=== PATIENT | female | born 1930 | race Caucasian/White ===

== ENCOUNTER 2016-05-15 10:47 | Inpatient (IN) | payer MEDICARE ==
[~2016-05-15] VITALS: Ht 171.4 cm; Wt 44.1 kg
[2016-05-15] VITALS (11 sets, daily range): BP systolic 79–145; BP diastolic 44–73; PULSE 93–143; RESP 16–25; TEMP 98.1–99.6; O2SAT 96–100
[~2016-05-15 10:47] MED LIST: AMLO10 PO; FEXO180 PO; FLON0.053; FLUTI44I INH; HYDR-3580 OR; LEVO50TA51 PO; LOSA25TA31 PO; TRAM50 PO
[2016-05-15] MEDS ORDERED: CALC1TAB12 PO (11:28)
[2016-05-15] MEDS ORDERED: LOSA25TA PO (11:28)
[2016-05-15] MEDS ORDERED: FLUTI110I INH (11:28)
[2016-05-15] MEDS ORDERED: FEXO180T PO (11:28)
[2016-05-15] MEDS ORDERED: FLUT1SPR5 EACH NARE (11:28)
[2016-05-15] MEDS ORDERED: MULT1TAB84 PO (11:28)
[2016-05-15] MEDS ORDERED: TYLETAB34 PO (11:28)
[2016-05-15] MEDS ORDERED: LEVO50TA4 PO (11:28)
[2016-05-15] MEDS ORDERED: AMLO5TAB2 PO (11:28)
--- NOTE | 2016-05-15 11:38 | PD ---
HPI Chief Complaint: Abdominal Pain Time Seen by Provider: 11:25 Travel History International Travel<30 days: No Contact w/Intl Traveler<30days: No Traveled to known affect area: No History of Present Illness HPI This patient complains of pain in her right upper quadrant. Pain is worse when she moves. Her appetite has been decreased. She had nausea vomiting diarrhea for couple of days but it basically stopped this morning. Resting in the bed she has minimal abdominal pain at this time. Symptoms severity has been moderate. No alleviating factors. No fever. Duration 3 days. PFSH Past Medical History Anemia: Yes Arthritis: Yes Asthma: Yes Blood Disorders: No Cancer: No High Cholesterol: Yes Chemotherapy: No Diminished Hearing: No Diverticulitis: Yes Gastrointestinal Disorders: Yes GERD: Yes Genitourinary: No Hypertension: Yes Immune Disorder: No Neurologic: Yes (Tremors) Psychiatric: No Reproductive: No Immunizations Current: No Radiation Therapy: No Thyroid Disease: Yes Tetanus Vaccination: Unknown Influenza Vaccination: Yes ?: Not Menopausal: Yes Dilation and Curettage (D&C): Yes Past Surgical History Gynecologic Surgery: Yes (D AND C ) Other Surgery: No Social History Alcohol Use: Yes (Rarely) Tobacco Use: No Substance Use: No Allergies-Medications (Allergen,Severity, Reaction): Coded Allergies: Primidone (Verified Adverse Reaction, Severe, Tremors, 05/15/16) Reported Meds & Prescriptions Reported Meds & Active Scripts Active Reported Tylenol-Codeine #3 (Acetaminophen-Codeine) 300-30 mg Tab 1 Tab PO Q4H PRN Calcium 500 +D (Calcium Carbonate-Cholecalciferol) 500-400 Mg-Unit Tab 1 Tab PO DAILY Multivitamin Adults (Multiple Vitamins W/ Minerals) 1 Tab 1 Tab PO DAILY Flonase Nasal [place] (Fluticasone Nasal [place]) 50 Mcg/Act [place] 50 Mcg EACH NARE BID Flovent Hfa 12 GM Inh (Fluticasone Propionate) 110 Mcg/Act Inh 2 Puff INH BID Fexofenadine (Fexofenadine HCl) 180 Mg Tab 180 Mg PO DAILY PRN Losartan (Losartan Potassium) 25 Mg Tab 25 Mg PO BID Levothyroxine (Levothyroxine Sodium) 50 Mcg Tab 50 Mcg PO DAILY Amlodipine (Amlodipine Besylate) 5 Mg Tab 5 Mg PO BID Review of Systems General / Constitutional: No: Fever Eyes: No: Visual changes HENT: No: Headaches Cardiovascular: No: Chest Pain or Discomfort Respiratory: No: Shortness of Breath Gastrointestinal: Positive: Nausea, Vomiting, Diarrhea, Abdominal Pain Genitourinary: No: Dysuria Musculoskeletal: No: Pain Skin: No Rash Neurologic: No: Weakness Psychiatric: No: Depression Endocrine: No: Polydipsia Hematologic/Lymphatic: No: Easy Bruising Physical Exam Narrative GENERAL: Thin elderly well-developed patient in no apparent distress. SKIN: Warm and dry. HEAD: Atraumatic. Normocephalic. EYES: Pupils equal and round. No scleral icterus. No injection or drainage. ENT: No nasal bleeding or discharge. Mucous membranes pink and moist. NECK: Trachea midline. No JVD. CARDIOVASCULAR: Regular rate and rhythm. No murmur appreciated. RESPIRATORY: No accessory muscle use. Clear to auscultation. Breath sounds equal bilaterally. GASTROINTESTINAL: Abdomen soft, right upper quadrant is tender but no rebound or guarding, nondistended. Hepatic and splenic margins not palpable. Has a readily reducible right inguinal hernia but this area is not tender. MUSCULOSKELETAL: No obvious deformities. No clubbing. No cyanosis. No edema. NEUROLOGICAL: Awake and alert. No obvious cranial nerve deficits. Motor grossly within normal limits. Normal speech. PSYCHIATRIC: Appropriate mood and affect; insight and judgment normal. Data Data Last Documented VS Vital Signs Date Time Temp Pulse Resp B/P Pulse Ox O2 Delivery O2 Flow Rate FiO2 05/15/16 12:50 102 18 145/73 99 Room Air 05/15/16 11:15 99.6 Orders Complete Blood Count With Diff (05/15/16 11:33) Basic Metabolic Panel (Bmp) (05/15/16 11:33) Iv Access Insert/Monitor (05/15/16 11:33) Ondansetron Inj (Zofran Inj) (05/15/16 11:45) Sodium Chloride 0.9% Flush (Ns Flush) (05/15/16 11:45) Sodium Chlorid 0.9% 500 Ml Inj (Ns 500 M (05/15/16 11:45) Ct Abd/Pel W Iv Contrast(Rout) (05/15/16 ) Urinalysis - C+S If Indicated (05/15/16 12:34) Cath For Specimen (05/15/16 12:34) Iohexol 350 Inj (Omnipaque 350 Inj) (05/15/16 13:09) Hepatic Functional Panel (05/15/16 11:20) Lipase (05/15/16 11:20) Labs Laboratory Tests Test 05/15/16 05/15/16 11:20 12:50 White Blood Count 21.4 TH/MM3 Red Blood Count 3.59 MIL/MM3 Hemoglobin 10.1 GM/DL Hematocrit 29.9 % Mean Corpuscular Volume 83.4 FL Mean Corpuscular Hemoglobin 28.2 PG Mean Corpuscular Hemoglobin 33.8 % Concent Red Cell Distribution Width 12.8 % Platelet Count 309 TH/MM3 Mean Platelet Volume 9.3 FL Neutrophils (%) (Auto) % Lymphocytes (%) (Auto) % Monocytes (%) (Auto) % Eosinophils (%) (Auto) % Basophils (%) (Auto) % Neutrophils # (Auto) TH/MM3 Lymphocytes # (Auto) TH/MM3 Monocytes # (Auto) TH/MM3 Eosinophils # (Auto) TH/MM3 Basophils # (Auto) TH/MM3 CBC Comment AUTO DIFF Differential Total Cells 100 Counted Neutrophils % (Manual) 88 % Band Neutrophils % 3 % Lymphocytes % 6 % Monocytes % 3 % Neutrophils # (Manual) 19.5 TH/MM3 Differential Comment FINAL DIFF MANUAL Platelet Estimate NORMAL Platelet Morphology Comment NORMAL Sodium Level 135 MEQ/L Potassium Level 3.6 MEQ/L Chloride Level 98 MEQ/L Carbon Dioxide Level 22.5 MEQ/L Anion Gap 15 MEQ/L Blood Urea Nitrogen 33 MG/DL Creatinine 1.00 MG/DL Estimat Glomerular Filtration 52 ML/MIN Rate Random Glucose 111 MG/DL Calcium Level 9.1 MG/DL Total Bilirubin 1.1 MG/DL Direct Bilirubin 0.4 MG/DL Indirect Bilirubin 0.7 MG/DL Aspartate Amino Transf 36 U/L (AST/SGOT) Alanine Aminotransferase 22 U/L (ALT/SGPT) Alkaline Phosphatase 84 U/L Total Protein 7.9 GM/DL Albumin 2.9 GM/DL Lipase 127 U/L Urine Collection Type CATH Urine Color YELLOW Urine Turbidity CLEAR Urine pH 6.0 Urine Specific [place] 1.019 Urine Protein 100 mg/dL Urine Glucose (UA) NEG mg/dL Urine Ketones TRACE mg/dL Urine Occult Blood TRACE Urine Nitrite NEG Urine Bilirubin NEG Urine Leukocyte Esterase NEG Urine WBC 0-2 /hpf Urine Transitional Epithelial 0-5 /hpf Cells Urine Hyaline Casts 20-24 /lpf Microscopic Urinalysis Comment CATH-CULT NOT IND Urine Collection Time 12:50 MDM Medical Decision Making Medical Screen Exam Complete: Yes Emergency Medical Condition: Yes Medical Record Reviewed: Yes Differential Diagnosis Inguinal hernia, incarcerated hernia, gastroenteritis, dehydration Narrative Course I have reviewed the patient's electronic medical record. IV placed I gave her IV Zofran and 500 cc normal saline IV CBC shows significant leukocytosis of 22,000 Metabolic profile is normal LFTs are normal Lipase is normal Patient has a tender right upper quadrant and CT scan shows a distended and thickened gallbladder. I gave her dose of IV Unasyn Patient has acute cholecystitis I reviewed with general surgeon Dr. Valdes who recommends hospitalist admission and he will be databases software consultant Diagnosis Primary Impression: Acute cholecystitis Admitting Information Admitting Physician Requests: Admit Santhosh Stone MD May 15, 2016 11:38
[2016-05-15] MEDS ORDERED: SODIUM CHLORIDE 0.9% FLUSH 10 ML FLUSH IVF PRN (11:45)
[2016-05-15] MEDS ORDERED: ONDANSETRON HCL 4 MG/2 ML VIAL IVP ONE (11:45)
[2016-05-15] MEDS ORDERED: SODIUM CHLORID 0.9% 500 ML INJ 500 ML IV SCH (11:45)
[2016-05-15 11:46] LABS: HEMATOCRIT 29.9 % (35.0-46.0); MEAN CELL VOLUME 83.4 FL (80.0-100.0); MEAN CORPUSCULAR HEMOGLOBIN 28.2 PG (27.0-34.0); MEAN CORPUSCULAR HGB CONC 33.8 % (32.0-36.0); PLATELET COUNT 309 TH/MM3 (150-450); RED BLOOD COUNT 3.59 MIL/MM3 (4.00-5.30); RED CELL DISTRIBUTION WIDTH 12.8 % (11.6-17.2); WHITE BLOOD COUNT 21.4 TH/MM3 (4.0-11.0)
[2016-05-15 11:47] LABS: HEMO FLAGS AUTO DIFF
[2016-05-15 11:56] LABS: POTASSIUM 3.6 MEQ/L (3.5-5.1)
[2016-05-15 11:59] LABS: BICARBONATE 22.5 MEQ/L (21.0-32.0)
[2016-05-15 12:11] LABS: BANDS 3 % (0-6); NEUTROPHIL # MANUAL DIFF 19.5 TH/MM3 (1.8-7.7); PLATELET ESTIMATE SMEAR NORMAL (NORMAL); PLATELET MORPHOLOGY NORMAL (NORMAL); POLYS (SEG NEUTROPHILS) 88 % (16-70); SCAN/DIFF FINAL DIFF MANUAL; WBC DIFF SAMPLE 100
[2016-05-15 12:55] LABS: BLOOD, URINE TRACE (NEG); GLUCOSE,URINE NEG (NEG); KETONE, URINE TRACE mg/dL (NEG); NITRITE,URINE NEG (NEG)
[2016-05-15 13:02] LABS: METHOD OF COLLECTION CATH; URINE COLOR YELLOW (YELLW/STRAW)
[2016-05-15 13:03] LABS: COMMENT (UR) CATH-CULT NOT IND; CULTURE IF INDICATED CATH CULTURE NOT IND; TRANSITIONAL EPI CELLS, URINE 0-5 /hpf; WBC, URINE 0-2 /hpf (0-5)
[2016-05-15] MEDS ORDERED: IOHEXOL 350 MG/ML 10 ML VIAL (for RAD DIAG) IV ONE (13:09)
--- NOTE | 2016-05-15 13:24 | RADHPO ---
EXAM DATE/TIME: 05/15/2016 12:55 [facility] COMPARISON: No previous studies available for comparison. INDICATIONS : Right lower quadrant pain. Nausea, vomiting and diarrhea. IV CONTRAST: 70 cc Omnipaque 350 (iohexol) IV ORAL CONTRAST: No oral contrast ingested. RADIATION DOSE: 4.53 CTDIvol (mGy) MEDICAL HISTORY : Diverticulitis. Gastroesophageal reflux disease. Hypertension.Asthma. SURGICAL HISTORY : None. ENCOUNTER: Initial ACUITY: 3 days PAIN SCALE: 6/10 LOCATION: Right lower quadrant TECHNIQUE: Volumetric scanning of the abdomen and pelvis was performed. Using automated exposure control and ad justment of the mA and/or kV according to patient size, radiation dose was kept as low as reasonably achievable to obtain optimal diagnostic quality images. FINDINGS: LOWER LUNGS: Bibasilar atelectatic changes/scarring, right and left. Atherosclerotic calcification of the coronary arteries LIVER: The abnormal with intra-and extrahepatic biliary ductal dilatation. The CBD measures almost 9 mm at t he pancreatic head. There is marked distention of the gallbladder lumen with diffuse gallbladder wall thickening. The second portion of the duodenum in the region of the ampulla is distended measuring 4 .5 cm.. SPLEEN: Normal size without lesion. PANCREAS: Within normal limits. KIDNEYS: Left kidney shows some cortical thinning and lobulation suggesting scarring. Followup is calcificatio n of the renal vasculature in the hilum on the right. Benign-appearing cortical cyst posterolaterally in the midpole the right kidney. In ADRENAL GLANDS: Within normal limits. VASCULAR: There is no aortic aneurysm. BOWEL/MESENTERY: The stomach, small bowel, and colon demonstrate no acute abnormality. There is no free intraperitone al air or fluid. ABDOMINAL WALL: Within normal limits. RETROPERITONEUM: There is no lymphadenopathy. BLADDER: No wall thickening or mass. REPRODUCTIVE: Scattered uterine parenchymal calcifications suggesting degenerating fibroids. INGUINAL: There is no lymphadenopathy or hernia. MUSCULOSKELETAL: There appears to be a high grade one anterolisthesis of L4 on 5 with possible bilateral pars fracture s at L4. CONCLUSION: 1. Markedly abnormal biliary tree with intra-and extrahepatic biliary duct dilatation, hydropic gallb ladder and marked gallbladder wall thickening. 2. Etiology for biliary obstruction is uncertain. However, there is distention of the second portion of the duodenum in the region of the ampulla. 3. Bibasilar atelectatic changes/scarring, right greater than left. 4. Cortical scarring and thinning of the left kidney. This may be the result of some vascular comprom ise. Degenerated uterine fibroids. Luis Rowe MD on May 15, 2016 at 13:10 Board Certified Radiologist. This report was verified electronically.
[2016-05-15 14:07] LABS: INDIRECT BILIRUBIN 0.7 MG/DL (0.0-0.8); TOTAL BILIRUBIN ADULT 1.1 MG/DL (0.2-1.0)
[2016-05-15] MEDS ORDERED: SODIUM CHLORIDE 0.9% FLUSH 10 ML FLUSH IV FLUSH PRN ×2 (14:45→16:30)
[2016-05-15] MEDS ORDERED: PIPERACIL-TAZO 3.375 GM PREMIX 50 ML IV SCH (14:45)
[2016-05-15] MEDS ORDERED: ACETAMINOPHEN 325 MG TAB PO PRN (14:45)
[2016-05-15] MEDS ORDERED: ONDANSETRON HCL 4 MG/2 ML VIAL IV PRN (14:45)
[2016-05-15] MEDS ORDERED: AMPICILLIN-SULBACTAM INJ 3 GM in SODIUM CHLORIDE 0.9% INJ 100 ML IV ONE (14:45)
[2016-05-15] MEDS: SODIUM CHLOR 0.9% 1000 ML INJ 1,000 ML IV SCH ×2 (15:31→22:31)
[2016-05-15] MEDS ORDERED: DILTIAZEM HCL 25 MG/5 ML VIAL IV ONE (16:15)
[2016-05-15] MEDS ORDERED: SODIUM CHLOR 0.9% 1000 ML INJ 1,000 ML IV ONE ×3 (16:15→22:30)
--- NOTE | 2016-05-15 16:27 | HHI.HP ---
HPI Service CP Hospitalists Primary Care Physician Lam Yang MD Admission Diagnosis acute cholecystitis Chief Complaint: acute abdominal pain with new onset atril fib with rvr hypotension Travel History International Travel<30 Days: No Contact w/Intl Traveler <30 Da: No Traveled to Known Affected Are: No History of Present Illness 86 y/o white female presents to er with abdominal pain with nausea and vomit work in er included CT abd which showed significant dilation bile ducts with large dilated gallbladder ,patient was to be admitted to medicine and in er developed rapid atrial fib with ventricular response of 150 and started on cardiazem bolus and drip and also developed hypotension and is receiving bolus IV fluid and will be admitted to intensive care. I will consult dairy cattle farm manager surgery has already been aware and will consult interventional radiology who also are aware of patient. Review of Systems Gastrointestinal: COMPLAINS OF: Abdominal pain, Nausea Past Family Social History Past Medical History anemia,djd,hyperlipidemia diverticular disease,GERD,hypothyroid Past Surgical History dand c Reported Medications flonase,losartan amlodipine levothyroxine Allergies: Coded Allergies: Primidone (Verified Adverse Reaction, Severe, Tremors, 05/15/16) Social History NS,ND Physical Exam Vital Signs Vital Signs Date Time Temp Pulse Resp B/P Pulse Ox O2 Delivery O2 Flow Rate FiO2 05/15/16 15:55 143 16 79/52 97 Room Air 05/15/16 15:30 135 16 111/58 97 Room Air 05/15/16 14:05 95 16 123/44 97 Room Air 05/15/16 12:50 102 18 145/73 99 Room Air 05/15/16 11:15 99.6 93 18 103/56 100 Physical Exam GENERAL: This is a well-nourished, well-developed patient, in no apparent distress. SKIN: No rashes, ecchymoses or lesions. Cool and dry. HEAD: Atraumatic. Normocephalic. No temporal or scalp tenderness. EYES: Pupils equal round and reactive. Extraocular motions intact. No scleral icterus. No injection or drainage. ENT: Nose without bleeding, purulent drainage or septal hematoma. Throat without erythema, tonsillar hypertrophy or exudate. Uvula midline. Airway patent. NECK: Trachea midline. No JVD or lymphadenopathy. Supple, nontender, no meningeal signs. CARDIOVASCULAR: Regular rate and rhythm without murmurs, gallops, or rubs. RESPIRATORY: Clear to auscultation. Breath sounds equal bilaterally. No wheezes , rales, or rhonchi. GASTROINTESTINAL: Abdomen soft, -tender,rt upper quadrant nondistended. No hepato-splenomegaly, or palpable masses. No guarding. MUSCULOSKELETAL: Extremities without clubbing, cyanosis, or edema. No joint tenderness, effusion, or edema noted. No calf tenderness. Negative Homans sign bilaterally. NEUROLOGICAL: Awake and alert. Cranial nerves II through XII intact. Motor and sensory grossly within normal limits. Five out of 5 muscle strength in all muscle groups. Normal speech. Laboratory Laboratory Tests Test 05/15/16 05/15/16 11:20 12:50 White Blood Count 21.4 Red Blood Count 3.59 Hemoglobin 10.1 Hematocrit 29.9 Mean Corpuscular Volume 83.4 Mean Corpuscular Hemoglobin 28.2 Mean Corpuscular Hemoglobin 33.8 Concent Red Cell Distribution Width 12.8 Platelet Count 309 Mean Platelet Volume 9.3 Neutrophils (%) (Auto) Lymphocytes (%) (Auto) Monocytes (%) (Auto) Eosinophils (%) (Auto) Basophils (%) (Auto) Neutrophils # (Auto) Lymphocytes # (Auto) Monocytes # (Auto) Eosinophils # (Auto) Basophils # (Auto) CBC Comment AUTO DIFF Differential Total Cells 100 Counted Neutrophils % (Manual) 88 Band Neutrophils % 3 Lymphocytes % 6 Monocytes % 3 Neutrophils # (Manual) 19.5 Differential Comment FINAL DIFF MANUAL Platelet Estimate NORMAL Platelet Morphology Comment NORMAL Sodium Level 135 Potassium Level 3.6 Chloride Level 98 Carbon Dioxide Level 22.5 Anion Gap 15 Blood Urea Nitrogen 33 Creatinine 1.00 Estimat Glomerular Filtration 52 Rate Random Glucose 111 Calcium Level 9.1 Total Bilirubin 1.1 Direct Bilirubin 0.4 Indirect Bilirubin 0.7 Aspartate Amino Transf 36 (AST/SGOT) Alanine Aminotransferase 22 (ALT/SGPT) Alkaline Phosphatase 84 Total Protein 7.9 Albumin 2.9 Lipase 127 Urine Collection Type CATH Urine Color YELLOW Urine Turbidity CLEAR Urine pH 6.0 Urine Specific [place] 1.019 Urine Protein 100 Urine Glucose (UA) NEG Urine Ketones TRACE Urine Occult Blood TRACE Urine Nitrite NEG Urine Bilirubin NEG Urine Leukocyte Esterase NEG Urine WBC 0-2 Urine Transitional Epithelial 0-5 Cells Urine Hyaline Casts 20-24 Microscopic Urinalysis Comment CATH-CULT NOT IND Urine Collection Time 12:50 Result Diagram: 05/15/16 1120 05/15/16 1120 Imaging Last 24 hours Impressions Abdomen/Pelvis CT 05/15/16 0000 Signed Impressions: Service Date/Time: Sunday, May 15, 2016 12:55 - CONCLUSION: 1. Markedly abnormal biliary tree with intra-and extrahepatic biliary duct dilatation, hydropic gallbladder and marked gallbladder wall thickening. 2. Etiology for biliary obstruction is uncertain. However, there is distention of the second portion of the duodenum in the region of the ampulla. 3. Bibasilar atelectatic changes/scarring, right greater than left. 4. Cortical scarring and thinning of the left kidney. This may be the result of some vascular compromise. Degenerated uterine fibroids. Luis Rowe MD Course heart rate-rapid atrial fib improved with bolus fluid and bolus cardiazem Assessment and Plan Problem List: (1) Acute cholecystitis Status: Acute Plan: [place] [id number] and was started on Zosyn and given IV fluid and have consulted GI general surgery and interventional radiology (2) Hypotension Status: Acute Plan: responding to IV fluid (3) Rapid atrial fibrillation Status: Acute Plan: given cardiazem bolus starting to respond have discussed with dairy cattle farm manager will transfer to [facility] [place] and consult them. Assessment and Plan further plan as case develops Code Status full Discussed Condition With patient Physician Certification 2 Midnight Certification Type: Admission for Inpatient Services Order for Inpatient Services The services are ordered in accordance with Medicare regulations or non- Medicare payer requirements, as applicable. In the case of services not specified as inpatient-only, they are appropriately provided as inpatient services in accordance with the 2-midnight benchmark. Estimated LOS (days): 3 3 days is the estimated time the patient will need to remain in the hospital, assuming treatment plan goals are met and no additional complications. Post-Hospital Plan: Not yet determined Ramirez Lucio MD May 15, 2016 16:27
[2016-05-15] MEDS ORDERED: NALOXONE HCL 0.4 MG/ML AMP IV PRN (16:30)
[2016-05-15] MEDS ORDERED: fentaNYL CITRATE 250 MCG/5 ML AMP ONE (17:21)
[2016-05-15] MEDS ORDERED: LEVOFLOXACIN 500 MG PREMIX INJ 100 ML IV ONE (17:21)
[2016-05-15] MEDS ORDERED: MIDAZOLAM HCL 5 MG/5 ML VIAL ONE (17:36)
--- NOTE | 2016-05-15 18:12 | HHI.GIFU ---
GI Follow-up Note Consult Follow-up came to see patient -in IR having cholecystostomy tube placement now It was a pleasure seeing Priti Magana Thank you for this consult. Entered by: Lalita Beverly MD May 15, 2016 18:12
--- NOTE | 2016-05-15 18:56 | RADRPT ---
EXAM DATE/TIME: 05/15/2016 17:52 [facility] COMPARISON: No previous studies available for comparison. INDICATIONS : Patient is in need of placement of a cholecystostomy tube due to acute cholecystitis. MEDICAL HISTORY : History of anemia, hypercholesteremia, hypothyroidism, diverticular disease. SURGICAL HISTORY : History of D and C. ENCOUNTER: Initial ACUITY: 1 day PAIN SCORE: 3/10 LOCATION: abdomen FLUORO TIME: 1.3 minutes IMAGE SERIES: 0 SEDATION TIME: 30 minutes MEDICATION(S): 1.) 1 mg midazolam (Versed) IV 2.) 75 mcg fentanyl (Sublimaze) IV 3.) 500 mg levofloxacin (Levaquin) IV DEVICE(S): 1.) 7 [place] 20cm Locking All purpose drain Skater PROCEDURE : 1. Ultrasound guided puncture of the gallbladder. 2. Percutaneous cholangiogram. 3. Percutaneous cholecystostomy tube placement. 4. Conscious sedation with continuous EKG and oximetry monitoring. The risks, benefits and alternatives to the procedure were explained and verbal and written consent w as obtained. The site was prepped in sterile fashion. Full sterile technique was used, including ca p, mask, sterile gloves and gown and a large sterile sheet. Hand hygiene and 2% chlorhexidine and/or betadine/alcohol prep was utilized per protocol for cutaneous antisepsis. The skin and subcutaneous tissues were infiltrated with local anesthetic solution. With ultrasound and fluoroscopic guidance the gallbladder was punctured with a micropuncture set and a 4 [place] dilator was placed. There was spontaneous return of slightly blood-tinged bile A 0.035 shayy dewire was placed within the gallbladder lumen and dilatation was performed to accept the prescribed catheter. Conscious sedation was performed with the prescribed dosages and duration as above in the presence of an independent trained radiology nurse to assist in the monitoring of the patient. EKG and oximetry remained stable throughout the procedure. The patient tolerated the procedure well and there were n o complications. The patient was sent to post anesthesia recovery in stable condition. CONCLUSION: Uncomplicated percutaneous cholecystostomy as above. Nagi Robbins MD on May 15, 2016 at 18:53 Board Certified Radiologist. This report was verified electronically.
--- NOTE | 2016-05-15 19:01 | PD.RAD ---
Post Procedure Progress Note Pre Procedure Diagnosis: (1) Acute cholecystitis Post Procedure Diagnosis: (1) Acute cholecystitis Procedure Date: May 15, 2016 Supervising Radiologist: Nagi Robbins Proceduralist/Assist: RT Aleksandra(R)() Anesthesia: Local, Conscious Sedation Plan of Activity Patient to Unit: ROPU Patient Condition: Fair See PACS Report for procedural detail/treatment Drainage Procedure Procedure 1 Imaging Guidance: Fluoroscopy, Ultrasound Side: Right Procedure Type: Cholecystostomy Procedure: Placement Latvian: 7 Drainage: [place] drainage Fluid Description: Bloody, Bilious Nagi Robbins MD May 15, 2016 19:01
[2016-05-15] MEDS ORDERED: DILTIAZEM INJ 125 MG in SODIUM CHLORIDE 0.9% INJ 100 ML IV SCH (20:00)
[2016-05-15] MEDS: amLODIPine BESYLATE 5 MG TAB PO SCH (20:10)
[2016-05-15] MEDS: PIPERACIL-TAZO 3.375 GM PREMIX 50 ML IV SCH (20:11)
[2016-05-15] MEDS ORDERED: SODIUM CHLORIDE 0.9% FLUSH 10 ML FLUSH IV FLUSH SCH ×2 (21:00)
--- NOTE | 2016-05-15 21:15 | PD.CONS ---
HPI Service Critical Care Medicine Consult Requested By Primary Care Physician Lam Yang MD History of Present Illness 86-year-old very pleasant white female presents with abdominal pain, nausea and vomiting. Her workup in the emergency department included CT a abdomen which showed significant dilation of the bile ducts with large dilated gallbladder. The patient was admitted to medicine however while in the emergency department she developed rapid atrial f ablation ib with ventricular response of 150 and was started on Cardizem bolus and drip. She developed hypotension and is receiving bolus IV fluid and now is admitted to intensive care unit. Surgery has already been aware. Review of Systems Constitutional: DENIES: Diaphoretic episodes, Fatigue, Fever, Weight gain, Weight loss, Chills, Dizziness, Change in appetite, Night Sweats Endocrine: DENIES: Abnorml menstrual pattern, Heat/cold intolerance, Polydipsia , Polyuria, Polyphagia Eyes: DENIES: Blurred vision, Diplopia, Eye inflammation, Eye pain, Vision loss , Photosensitivity, Double Vision Ears, nose, mouth, throat: DENIES: Tinnitus, Hearing loss, Vertigo, Nasal discharge, Oral lesions, Throat pain, Hoarseness, Ear Pain, Running Nose, Epistaxis, Sinus Pain, Toothache, Odynophagia Respiratory: DENIES: Apneas, Cough, Snoring, Wheezing, Hemoptysis, Sputum production, Shortness of breath Cardiovascular: DENIES: Chest pain, Palpitations, Syncope, Dyspnea on Exertion , PND, Lower Extremity Edema, Orthopnea, Claudication Gastrointestinal: COMPLAINS OF: Abdominal pain, Nausea, Vomiting, DENIES: Black stools, Bloody stools, Constipation, Diarrhea, Difficulty Swallowing, Anorexia Genitourinary: DENIES: Abnormal vaginal bleeding, Dysmenorrhea, Dyspareunia, Sexual dysfunction, Urinary frequency, Urinary incontinence, Urgency, Hematuria , Dysuria, Nocturia, Vaginal discharge Musculoskeletal: DENIES: Joint pain, Muscle aches, Stiffness, Joint Swelling, Back pain, Neck pain Integumentary: DENIES: Abnormal pigmentation, Pruritus, Rash, Nail changes, Breast masses, Breast skin changes, Nipple discharge Hematologic/lymphatic: DENIES: Bruising, Lymphadenopathy Immunologic/allergic: DENIES: Eczema, Urticaria Neurologic: DENIES: Abnormal gait, Headache, Localized weakness, Paresthesias, Seizures, Speech Problems, Tremor, Poor Balance Psychiatric: DENIES: Anxiety, Confusion, Mood changes, Depression, Hallucinations, Agitation, Suicidal Ideation, Homicidal Ideation, Delusions Past Family Social History Allergies: Coded Allergies: Primidone (Verified Adverse Reaction, Severe, Tremors, 05/15/16) Past Medical History Anemia Degenerative joint disease Hyperlipidemia Diverticulosis GERD Hypothyroid Past Surgical History D and C Reported Medications Reported Meds & Active Scripts Active Reported Tylenol-Codeine #3 (Acetaminophen-Codeine) 300-30 mg Tab 1 Tab PO Q4H PRN Calcium 500 +D (Calcium Carbonate-Cholecalciferol) 500-400 Mg-Unit Tab 1 Tab PO DAILY Multivitamin Adults (Multiple Vitamins W/ Minerals) 1 Tab 1 Tab PO DAILY Flonase Nasal [place] (Fluticasone Nasal [place]) 50 Mcg/Act [place] 50 Mcg EACH NARE BID Flovent Hfa 12 GM Inh (Fluticasone Propionate) 110 Mcg/Act Inh 2 Puff INH BID Fexofenadine (Fexofenadine HCl) 180 Mg Tab 180 Mg PO DAILY PRN Losartan (Losartan Potassium) 25 Mg Tab 25 Mg PO BID Levothyroxine (Levothyroxine Sodium) 50 Mcg Tab 50 Mcg PO DAILY Amlodipine (Amlodipine Besylate) 5 Mg Tab 5 Mg PO BID Active Ordered Medications Current Medications Medications (Trade) Dose Ordered Sig/Sally Route PRN Reason Start Time Stop Time Status Last Admin Dose Admin Sodium Chloride 2 ml 2 ml UNSCH PRN IVF FLUSH AFTER USING IV ACCESS 05/15/16 11:45 Sodium Chloride (NS 500 ml Inj) 500 ml @ 0 mls/hr Q0M IV 05/15/16 11:45 05/15/16 11:57 Sodium Chloride (NS Flush) 2 ml UNSCH PRN IV FLUSH FLUSH AFTER USING IV ACCESS 05/15/16 14:45 Sodium Chloride (NS Flush) 2 ml BID IV FLUSH 05/15/16 21:00 05/15/16 20:11 Acetaminophen (Tylenol) 650 mg Q4H PRN PO PAIN SCALE 1 TO 10 05/15/16 14:45 Ondansetron HCl (Zofran Inj) 4 mg Q6H PRN IV NAUSEA OR VOMITING 05/15/16 14:45 Pantoprazole Sodium 40 mg 40 mg DAILY IV 05/16/16 09:00 Sodium Chloride 1,000 ml @ 100 mls/hr Q10H IV 05/15/16 14:45 05/15/16 15:31 Piperacillin Sod/ Tazobactam Sod (Zosyn 3.375 Gm Premix) 50 ml @ 100 mls/hr Q6H IV 05/15/16 21:00 05/15/16 20:11 Amlodipine Besylate (Norvasc) 5 mg BID PO 05/15/16 21:00 Fluticasone Propionate (Flovent Hfa 110 Mcg Inh) 2 puff BID INH 05/15/16 21:00 Fluticasone Propionate (Flonase [place] Spr) 1 spray BID EACH NARE 05/15/16 21:00 Levothyroxine Sodium (Synthroid) 50 mcg DAILY@06 PO 05/16/16 06:00 Sodium Chloride (NS Flush) 2 ml UNSCH PRN IV FLUSH FLUSH AFTER USING IV ACCESS 05/15/16 16:30 Sodium Chloride (NS Flush) 2 ml BID IV FLUSH 05/15/16 21:00 05/15/16 20:11 Naloxone HCl 0.4 mg 0.4 mg UNSCH PRN IV SEE LABEL COMMENTS 05/15/16 16:30 Diltiazem HCl/ Sodium Chloride (Cardizem Inj/NS Inj) 125 ml @ 0 mls/hr TITRATE IV 05/15/16 20:00 Family History Noncontributory Social History Negative 3 Physical Exam Vital Signs Vital Signs Date Time Temp Pulse Resp B/P Pulse Ox O2 Delivery O2 Flow Rate FiO2 05/15/16 16:35 114 18 110/57 96 Room Air 05/15/16 16:20 107 16 103/50 96 Room Air 05/15/16 16:10 106 16 96/51 97 Room Air 05/15/16 15:55 143 16 79/52 97 Room Air 05/15/16 15:30 135 16 111/58 97 Room Air 05/15/16 14:05 95 16 123/44 97 Room Air 05/15/16 12:50 102 18 145/73 99 Room Air 05/15/16 11:15 99.6 93 18 103/56 100 Laboratory Laboratory Tests Test 05/15/16 05/15/16 11:20 12:50 White Blood Count 21.4 Red Blood Count 3.59 Hemoglobin 10.1 Hematocrit 29.9 Mean Corpuscular Volume 83.4 Mean Corpuscular Hemoglobin 28.2 Mean Corpuscular Hemoglobin 33.8 Concent Red Cell Distribution Width 12.8 Platelet Count 309 Mean Platelet Volume 9.3 Neutrophils (%) (Auto) Lymphocytes (%) (Auto) Monocytes (%) (Auto) Eosinophils (%) (Auto) Basophils (%) (Auto) Neutrophils # (Auto) Lymphocytes # (Auto) Monocytes # (Auto) Eosinophils # (Auto) Basophils # (Auto) CBC Comment AUTO DIFF Differential Total Cells 100 Counted Neutrophils % (Manual) 88 Band Neutrophils % 3 Lymphocytes % 6 Monocytes % 3 Neutrophils # (Manual) 19.5 Differential Comment FINAL DIFF MANUAL Platelet Estimate NORMAL Platelet Morphology Comment NORMAL Sodium Level 135 Potassium Level 3.6 Chloride Level 98 Carbon Dioxide Level 22.5 Anion Gap 15 Blood Urea Nitrogen 33 Creatinine 1.00 Estimat Glomerular Filtration 52 Rate Random Glucose 111 Calcium Level 9.1 Total Bilirubin 1.1 Direct Bilirubin 0.4 Indirect Bilirubin 0.7 Aspartate Amino Transf 36 (AST/SGOT) Alanine Aminotransferase 22 (ALT/SGPT) Alkaline Phosphatase 84 Total Protein 7.9 Albumin 2.9 Lipase 127 Urine Collection Type CATH Urine Color YELLOW Urine Turbidity CLEAR Urine pH 6.0 Urine Specific [place] 1.019 Urine Protein 100 Urine Glucose (UA) NEG Urine Ketones TRACE Urine Occult Blood TRACE Urine Nitrite NEG Urine Bilirubin NEG Urine Leukocyte Esterase NEG Urine WBC 0-2 Urine Transitional Epithelial 0-5 Cells Urine Hyaline Casts 20-24 Microscopic Urinalysis Comment CATH-CULT NOT IND Urine Collection Time 12:50 Result Diagram: 05/15/16 1120 05/15/16 1120 Imaging Last 24 hours Impressions Percutaneous Cholangiogram 05/15/16 0000 Signed Impressions: Service Date/Time: Sunday, May 15, 2016 17:52 - CONCLUSION: Uncomplicated percutaneous cholecystostomy as above. Nagi Robbins MD Abdomen/Pelvis CT 05/15/16 0000 Signed Impressions: Service Date/Time: Sunday, May 15, 2016 12:55 - CONCLUSION: 1. Markedly abnormal biliary tree with intra-and extrahepatic biliary duct dilatation, hydropic gallbladder and marked gallbladder wall thickening. 2. Etiology for biliary obstruction is uncertain. However, there is distention of the second portion of the duodenum in the region of the ampulla. 3. Bibasilar atelectatic changes/scarring, right greater than left. 4. Cortical scarring and thinning of the left kidney. This may be the result of some vascular compromise. Degenerated uterine fibroids. Luis Rowe MD Assessment and Plan Problem List: (1) Acute cholecystitis ICD Code: K81.0 Status: Acute (2) Hypotension ICD Code: I95.9 Status: Acute (3) Rapid atrial fibrillation ICD Code: I48.91 Status: Acute Assessment and Plan Acute cholecystitis - Management per general surgery - Prophylactically Levaquin - IR consult for drainage Hypothyroid - Levothyroxine A. fib with RVR - Cardizem drip - 2-D echo Hypotension - Due to above - IV fluid hydration - Rate control of atrial fibrillation DVT GI prophylaxis - Teds SCDs and Lovenox and Pepcid Critical Care: The total critical care time was 35 minutes. Time to perform other separately billable procedures was not included in the critical care time. Rocky Horn MD May 15, 2016 21:15
[2016-05-15] MEDS ORDERED: AMIODARONE INJ 150 MG in DEXTROSE 5% IN WATER 100ML INJ 97 ML IV ONE ×2 (22:30)
[2016-05-15] MEDS: FLUTICASONE PROPIONATE 50 MCG/ACT 16 GM NASAL SPRAY EACH NARE SCH (23:35)
[2016-05-15] MEDS: FLUTICASONE PROPIONATE 110 MCG/ACT 12 GM INHALER INH SCH (23:35)
[2016-05-15] MEDS: AMIODARONE INJ 450 MG in DEXTROSE 5% IN WATE(EXCEL) INJ 250 ML IV SCH ×2 (23:35)
[2016-05-16] VITALS (18 sets, daily range): BP systolic 85–168; BP diastolic 49–72; PULSE 68–111; RESP 16–28; TEMP 98.1–98.8; O2SAT 96–98
[2016-05-16] MEDS: PIPERACIL-TAZO 3.375 GM PREMIX 50 ML IV SCH ×4 (03:40→20:36)
[2016-05-16 04:39] LABS: AUTOMATED NEUTROPHIL # 13.5 TH/MM3 (1.8-7.7); BASOPHIL % 0.1 % (0.0-2.0); HEMATOCRIT 23.7 % (35.0-46.0); HEMO FLAGS DIFF FINAL; LYMPH % 3.2 % (9.0-44.0); LYMPHOCYTE # 0.5 TH/MM3 (1.0-4.8); MEAN CELL VOLUME 83.5 FL (80.0-100.0); MEAN CORPUSCULAR HEMOGLOBIN 27.7 PG (27.0-34.0); MEAN CORPUSCULAR HGB CONC 33.2 % (32.0-36.0); MONO % 6.7 % (0.0-8.0); PLATELET COUNT 254 TH/MM3 (150-450); RED BLOOD COUNT 2.84 MIL/MM3 (4.00-5.30); RED CELL DISTRIBUTION WIDTH 13.6 % (11.6-17.2); WHITE BLOOD COUNT 14.9 TH/MM3 (4.0-11.0)
[2016-05-16 05:13] LABS: ALKALINE PHOSPHATASE 62 U/L (45-117); ALT (GPT) 16 U/L (10-53); ANION GAP 13 MEQ/L (5-15); AST (GOT) 23 U/L (15-37); BICARBONATE 18.3 MEQ/L (21.0-32.0); BLOOD UREA NITROGEN 28 MG/DL (7-18); CHLORIDE 109 MEQ/L (98-107); GLOMERULAR FILTRATION RATE 79 ML/MIN (>89); SODIUM (NA) 140 MEQ/L (136-145); TOTAL BILIRUBIN ADULT 0.6 MG/DL (0.2-1.0)
[2016-05-16 05:27] LABS: POTASSIUM 2.9 MEQ/L (3.5-5.1)
[2016-05-16] MEDS: LEVOTHYROXINE SODIUM 50 MCG TAB PO SCH (05:44)
[2016-05-16] MEDS ORDERED: MAGNESIUM SULFATE INJ 2 GM in SODIUM CHLORIDE 0.9% INJ 96 ML IV PRN (05:45)
[2016-05-16] MEDS ORDERED: POTASSIUM CHLOR 20 MEQ PREMIX 100 ML IV PRN (05:45)
[2016-05-16] MEDS ORDERED: POTASSIUM PHOSPHATE INJ 30 MMOL in SODIUM CHLOR 0.9% 250 ML INJ 250 ML IV PRN (05:45)
[2016-05-16] MEDS ORDERED: POTASSIUM PHOSPHATE MONOBASIC 500 MG TAB PO/TUBE PRN (05:45)
[2016-05-16] MEDS ORDERED: POTASSIUM PHOSPHATE MONOBASIC 500 MG TAB PO PRN (05:45)
[2016-05-16] MEDS ORDERED: POTASSIUM CHLOR 40 MEQ PREMIX 100 ML IV PRN ×2 (05:45)
[2016-05-16] MEDS ORDERED: SODIUM PHOSPHATE INJ 30 MMOL in SODIUM CHLOR 0.9% 250 ML INJ 240 ML IV PRN (05:45)
[2016-05-16] MEDS ORDERED: MAGNESIUM OXIDE 400 MG TAB PO PRN (05:45)
[2016-05-16] MEDS ORDERED: MAGNESIUM SULFATE INJ 4 GM in SODIUM CHLORIDE 0.9% INJ 92 ML IV PRN (05:45)
[2016-05-16] MEDS: POTASSIUM CHLOR 20 MEQ PREMIX 100 ML IV PRN ×3 (05:57→21:04)
--- NOTE | 2016-05-16 06:38 | HHI.CCPN ---
Subjective Remarks/Hospital Course 86-year-old very pleasant white female presents with abdominal pain, nausea and vomiting. Her workup in the emergency department included CT a abdomen which showed significant dilation of the bile ducts with large dilated gallbladder. The patient was admitted to medicine however while in the emergency department she developed rapid atrial f ablation ib with ventricular response of 150 and was started on Cardizem bolus and drip. She developed hypotension and is receiving bolus IV fluid and now is admitted to intensive care unit. Surgery has already been aware. Subjective 05/16: Status post 7 [place] cholecystostomy tube placed by IR overnight secondary to acute cholecystitis. Patient was initiated on amiodarone drip due to A. fib with RVR. Currently resting in bed. Pain right upper quadrant currently 3 out of 10. Hemodynamic stable not on vasopressors. Objective Vital Signs Date Time Temp Pulse Resp B/P Pulse Ox O2 Delivery O2 Flow Rate FiO2 05/16/16 06:00 99 05/16/16 03:00 98.1 18 106/57 96 05/15/16 19:00 Room Air Intake and Output 05/15/16 05/15/16 05/16/16 08:00 16:00 00:00 Intake Total 600 ml 944 ml Output Total 0 ml Balance 600 ml 944 ml Result Diagram: 05/16/16 0406 05/16/16 0406 Imaging Last Impressions Percutaneous Cholangiogram 05/15/16 0000 Signed Impressions: Service Date/Time: Sunday, May 15, 2016 17:52 - CONCLUSION: Uncomplicated percutaneous cholecystostomy as above. Naig Robbins MD Abdomen/Pelvis CT 05/15/16 0000 Signed Impressions: Service Date/Time: Sunday, May 15, 2016 12:55 - CONCLUSION: 1. Markedly abnormal biliary tree with intra-and extrahepatic biliary duct dilatation, hydropic gallbladder and marked gallbladder wall thickening. 2. Etiology for biliary obstruction is uncertain. However, there is distention of the second portion of the duodenum in the region of the ampulla. 3. Bibasilar atelectatic changes/scarring, right greater than left. 4. Cortical scarring and thinning of the left kidney. This may be the result of some vascular compromise. Degenerated uterine fibroids. Luis Rowe MD Objective Remarks GENERAL: 86-year-old female, critically ill currently resting in bed in no acute distress SKIN: Warm and dry. No rash HEAD: Atraumatic. Normocephalic. EYES: Pupils equal and round about 2 mm bilaterally and reactive. No scleral icterus. No injection or drainage. ENT: No nasal bleeding or discharge. Mucous membranes pink and moist. NECK: Trachea midline. No JVD. Supple CARDIOVASCULAR: Tachycardic, IR. S1, S2 no S4 without murmur RESPIRATORY: Clear to auscultation bilaterally without wheezes, rales or rhonchi. Breath sounds equal bilaterally. GASTROINTESTINAL: Abdomen soft, tender to palpation right upper quadrant epigastric region with voluntary guarding/no rigidity. Hypoactive bowel sounds MUSCULOSKELETAL: Extremities without significant peripheral edema. No obvious deformities. NEUROLOGICAL: Awake and alert. No obvious cranial nerve deficits. Motor grossly within normal limits. Five out of 5 muscle strength in the arms and legs. Normal speech. A/P Problem List: (1) Acute cholecystitis ICD Code: K81.0 Status: Acute (2) Hypotension ICD Code: I95.9 Status: Acute (3) Rapid atrial fibrillation ICD Code: I48.91 Status: Acute Assessment and Plan Neuro/Psych: History of benign essential tremor Acute management of cholecystitis pain Allergic rhinitis Acetaminophen for fever [place]/as needed morphine for pain management Noted allergy primidone for BET Holding Eryn 180 mg by mouth daily for allergies Continuing Flonase 50 mcg 2 nasal inhalations 2 times a day CV: A. fib with RVR Hypertension Dyslipidemia Initially treated with Cardizem drip Currently on amiodarone drip after receiving 150 mg IV bolus per protocol Holding losartan 25 mg by mouth twice a day/Norvasc 5 mg by mouth twice a day/ home medications with low blood pressure Check 2-D echocardiogram/troponins/TSH Check electrolytes/check magnesium this a.m. Resp: History of mild intermittent asthma Continue Flovent 2 puffs twice a day and as needed albuterol nebs every 4 hours. Nasal cannula to maintain saturations greater than equal to 92% Incentive spirometry while awake Follow-up on a.m. chest x-ray. GI: Acute cholecystitis Status post #7 [place] cholecystostomy tube placed by IR 05/15 History diverticulitis Hypo-albuminemia CT abdomen/post revealed intra-and extrabiliary duct dilatation. Hydrops gallbladder. Second part of duodenum with distention. -150 bilous output from cholecystostomy drain. 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 No follow-up indicated Endo: Hypothyroidism Currently Levoxyl 50 g by mouth daily./Home dosage Check TSH Sliding-scale insulin with Accu-Cheks to maintain euglycemia/every 6 hours Renal: Left renal cortical thinning. Currently on normal saline 100 cc an hour. Accurate I's and O's Monitor urine output Heme: Leukocytosis Normocytic anemia Monitor CBC/coags ID: Acute cholecystitis Day #2 Zosyn. Received Unasyn at port or Pertinent cultures Blood cultures 2 FEN: Hypocalcemia Hypokalemia Replace electrolytes per ICU electrolyte protocol. Check potassium at 1600 MSK: Osteoarthritis/osteoporosis Holding calcium with vitamin D. Resume when clinically indicated PTs evaluate and treat Access - Utilize peripheral IV. Central line if indicated Prophylaxis - GI - Protonix - DVT - SCD/pharmacological prophylaxis when okayed with general surgery Critical Care: The total critical care time was 35 minutes. Time to perform other separately billable procedures was not included in the critical care time. Acute cholecystitis - Management per general surgery - Prophylactically Levaquin - IR consult for drainage Hypothyroid - Levothyroxine A. fib with RVR - Cardizem drip - 2-D echo Hypotension - Due to above - IV fluid hydration - Rate control of atrial fibrillation DVT GI prophylaxis - Teds SCDs and Lovenox and Pepcid Critical Care: The total critical care time was 35 minutes. Time to perform other separately billable procedures was not included in the critical care time. Eliecer Collins MD May 16, 2016 06:38
[2016-05-16] MEDS: AMIODARONE INJ 450 MG in DEXTROSE 5% IN WATE(EXCEL) INJ 250 ML IV SCH ×2 (06:43)
[2016-05-16] MEDS ORDERED: ACETAMINOPHEN 325 MG TAB PO PRN (06:45)
[2016-05-16] MEDS ORDERED: MISCELLANEOUS NURSING INFORMATION XX SCH (06:45)
[2016-05-16] MEDS ORDERED: CHLORHEXIDINE GLUCONATE 2 % 1 PACK (2 CLOTHS) TOP PRN (06:45)
[2016-05-16] MEDS ORDERED: RESP: ALBUTEROL 2.5 MG/3 ML NEB (PRN) INH (06:45)
[2016-05-16] MEDS ORDERED: SODIUM CHLORIDE 0.9% FLUSH 10 ML FLUSH IV FLUSH PRN (06:45)
[2016-05-16] MEDS: DOCUSATE SODIUM 100 MG CAP PO SCH ×2 (07:33→20:36)
[2016-05-16] MEDS: PANTOPRAZOLE SODIUM 40 MG VIAL IV SCH (07:33)
[2016-05-16] MEDS: ENOXAPARIN SODIUM 40 MG/0.4 ML SYRINGE SQ SCH (07:34)
[2016-05-16] MEDS: ACETAMINOPHEN/HYDROcodone 325 MG/5 MG TAB PO PRN ×2 (07:34→20:37)
[2016-05-16] MEDS: amLODIPine BESYLATE 5 MG TAB PO SCH ×2 (07:35→20:37)
[2016-05-16] MEDS ORDERED: SENNOSIDES 8.6 MG TAB PO PRN (08:00)
[2016-05-16] MEDS ORDERED: ONDANSETRON HCL 4 MG/2 ML VIAL IV PRN (08:00)
[2016-05-16] MEDS ORDERED: MORPHINE SULFATE 4 MG/ML INJ IV PRN (08:00)
[2016-05-16] MEDS ORDERED: ALBUMIN HUMAN 25% 25 GM/100 ML BAGP IV ONE (08:00)
--- NOTE | 2016-05-16 08:55 | PD.CONS ---
HPI History of Present Illness This is a very pleasant 86 year old female with past medical history of chronic anemia, CKD, HTN who came in to the ED for evaluation of severe right sided abdomen pain. She endorses bad case of diarrhea X 2 days, states this cleared up then the pain started, she couldn't move, every time she moved, the pain was intolerable, constant 10 on the scale from 0-10, associated with nausea, but no vomiting, patient hasn't been eating very well for the past 2 days. Patient lives alone, she wears the alert for help device, she asked for help and was brought to [facility] for further evaluation. Workup in the emergency department included CT a abdomen which showed Markedly abnormal biliary tree with intra-and extrahepatic biliary duct dilatation, hydropic gallbladder and marked gallbladder wall thickening. Etiology for biliary obstruction is uncertain. However, there is distention of the second portion of the duodenum in the region of the ampulla. While in the emergency department she developed rapid atrial fibrillation with ventricular response of 150 and was started on Cardizem bolus and drip. She also developed hypotension and was given bolus. She was evaluated by GS and under went percutaneous cholecystostomy with IR. LFTs normal. HIDA, MRCP ordered but pending. Patient has no previous history of this. She denies fever, chills, vomiting, hematemesis, hematochezia, or melena. (Denton Wade) PFSH Past Medical History HTN anemia diverticular dz hypothyroid CKD Past Surgical History D&C (Denton Wade) Coded Allergies: Primidone (Verified Adverse Reaction, Severe, Tremors, 05/15/16) Medications Current Medications Medications (Trade) Dose Ordered Sig/Sally Route Start Time Stop Time Status Last Admin (NS 500 ml Inj) 500 ml @ 0 mls/hr Q0M IV 05/15/16 11:45 05/15/16 11:57 (Tylenol) 650 mg Q4H PRN PO 05/15/16 14:45 05/15/16 23:35 (Zofran Inj) 4 mg Q6H PRN IV 05/15/16 14:45 Pantoprazole Sodium 40 mg 40 mg DAILY IV 05/16/16 09:00 05/16/16 07:33 Sodium Chloride 1,000 ml @ 100 mls/hr Q10H IV 05/15/16 14:45 05/15/16 22:31 (Zosyn 3.375 Gm Premix) 50 ml @ 100 mls/hr Q6H IV 05/15/16 21:00 05/16/16 03:40 (Norvasc) 5 mg BID PO 05/15/16 21:00 (Flovent Hfa 110 Mcg Inh) 2 puff BID INH 05/15/16 21:00 05/15/16 23:35 (Flonase Lester Spr) 1 spray BID EACH NARE 05/15/16 21:00 05/15/16 23:35 (Synthroid) 50 mcg DAILY@06 PO 05/16/16 06:00 05/16/16 05:44 Naloxone HCl 0.4 mg 0.4 mg UNSCH PRN IV 05/15/16 16:30 Amiodarone HCl 450 mg/Dextrose 259 ml @ 0 mls/hr CONTINUOUS IV 05/15/16 22:30 05/16/16 06:43 Potassium Chloride 100 ml @ 50 mls/hr Q2H PRN IV 05/16/16 05:45 Potassium Chloride 100 ml @ 50 mls/hr Q2H PRN IV 05/16/16 05:45 05/16/16 05:57 Potassium Chloride 100 ml @ 25 mls/hr UNSCH PRN IV 05/16/16 05:45 Potassium Chloride 100 ml @ 50 mls/hr Q2H PRN IV 05/16/16 05:45 (Magnesium Sulfate Inj/NS Inj) 100 ml @ 50 mls/hr UNSCH PRN IV 05/16/16 05:45 Magnesium Oxide 800 mg 800 mg UNSCH PRN PO 05/16/16 05:45 (Magnesium Sulfate Inj/NS Inj) 100 ml @ 50 mls/hr UNSCH PRN IV 05/16/16 05:45 Potassium Phosphate 2000 mg 2,000 mg Q4H PRN PO 05/16/16 05:45 (Sodium Phosphate Inj/NS 250 ml Inj) 250 ml @ 42 mls/hr UNSCH PRN IV 05/16/16 05:45 Potassium Phosphate 2000 mg 2,000 mg UNSCH PRN PO/TUBE 05/16/16 05:45 (Potassium Phosphate Inj/NS 250 ml Inj) 260 ml @ 42 mls/hr UNSCH PRN IV 05/16/16 05:45 (NS Flush) 2 ml UNSCH PRN IV FLUSH 05/16/16 06:45 (NS Flush) 2 ml BID IV FLUSH 05/16/16 09:00 ([place]by 5-325 Mg) 1 tab Q4H PRN PO 05/16/16 08:00 05/16/16 07:34 (Morphine Inj) 2 mg Q2H PRN IV 05/16/16 08:00 (Tears Naturale Opth Soln) 1 drop TID EACH EYE 05/16/16 09:00 (Zofran Inj) 4 mg Q6H PRN IV 05/16/16 08:00 (Colace) 100 mg BID PO 05/16/16 09:00 05/16/16 07:33 (Senokot) 17.2 mg Q12H PRN PO 05/16/16 08:00 (Lovenox Inj) 40 mg Q24H SQ 05/16/16 08:00 05/16/16 07:34 Miscellaneous Information 1 Q361D XX 05/16/16 06:45 (Chlorhexidine 2% Cloth) 3 pack Taper DAILY@04 TOP 05/17/16 04:00 05/13/17 03:59 Chlorhexidine Gluconate 3 pack 3 pack UNSCH PRN TOP 05/16/16 06:45 (Calcium Gluconate Inj/NS Inj) 110 ml @ 110 mls/hr ONCE ONCE IV 05/16/16 09:00 05/16/16 09:59 Family History Non contributory Social History No alcohol No smoking ([place] hubbard) Review of Systems Constitutional: COMPLAINS OF: Fatigue, DENIES: Weight loss, Chills Endocrine: DENIES: Polyuria Eyes: DENIES: Double Vision Ears, nose, mouth, throat: DENIES: Hoarseness Respiratory: DENIES: Shortness of breath Cardiovascular: DENIES: Claudication Gastrointestinal: COMPLAINS OF: Abdominal pain, Constipation, Diarrhea, Nausea , Anorexia, DENIES: Black stools, Bloody stools, Vomiting, Difficulty Swallowing, Odynophagia, Swelling of Abdomen, Heartburn, Hematemesis Genitourinary: DENIES: Hematuria Musculoskeletal: COMPLAINS OF: Back pain, DENIES: Neck pain Integumentary: DENIES: Jaundice Hematologic/lymphatic: DENIES: Bruising Immunologic/allergic: DENIES: Eczema Neurologic: DENIES: Abnormal gait Psychiatric: DENIES: Anxiety (Denton Wade) GI Exam Vitals I&O Vital Signs Date Time Temp Pulse Resp B/P Pulse Ox O2 Delivery O2 Flow Rate FiO2 05/16/16 07:52 98 21 05/16/16 06:00 99 05/16/16 04:00 99 05/16/16 03:00 98.1 91 18 106/57 96 05/16/16 02:00 91 05/16/16 00:00 98.1 111 26 85/49 96 05/16/16 00:00 111 05/15/16 22:00 126 05/15/16 20:00 126 05/15/16 19:00 98.1 116 25 114/55 97 05/15/16 19:00 116 05/15/16 19:00 97 Room Air 05/15/16 16:35 114 18 110/57 96 Room Air 05/15/16 16:20 107 16 103/50 96 Room Air 05/15/16 16:10 106 16 96/51 97 Room Air 05/15/16 15:55 143 16 79/52 97 Room Air 05/15/16 15:30 135 16 111/58 97 Room Air 05/15/16 14:05 95 16 123/44 97 Room Air 05/15/16 12:50 102 18 145/73 99 Room Air 05/15/16 11:15 99.6 93 18 103/56 100 I/O 05/15/16 05/15/16 05/15/16 05/16/16 05/16/16 05/16/16 07:00 15:00 23:00 07:00 15:00 23:00 Intake Total 500 ml 1044 ml 1680 ml Output Total 0 ml 900 ml Balance 500 ml 1044 ml 780 ml Intake IV Total 500 ml 1044 ml 1680 ml Output Urine Total 0 ml 750 ml Drainage Total 150 ml Bladder Scan Volume Amount 515 ml Imaging Last Impressions Percutaneous Cholangiogram 05/15/16 0000 Signed Impressions: Service Date/Time: Sunday, May 15, 2016 17:52 - CONCLUSION: Uncomplicated percutaneous cholecystostomy as above. Nagi Robbins MD Abdomen/Pelvis CT 05/15/16 0000 Signed Impressions: Service Date/Time: Sunday, May 15, 2016 12:55 - CONCLUSION: 1. Markedly abnormal biliary tree with intra-and extrahepatic biliary duct dilatation, hydropic gallbladder and marked gallbladder wall thickening. 2. Etiology for biliary obstruction is uncertain. However, there is distention of the second portion of the duodenum in the region of the ampulla. 3. Bibasilar atelectatic changes/scarring, right greater than left. 4. Cortical scarring and thinning of the left kidney. This may be the result of some vascular compromise. Degenerated uterine fibroids. Luis Rowe MD Laboratory Test 05/15/16 05/15/16 05/16/16 11:20 12:50 04:06 White Blood Count 21.4 TH/MM3 14.9 TH/MM3 Red Blood Count 3.59 MIL/MM3 2.84 MIL/MM3 Hemoglobin 10.1 GM/DL 7.9 GM/DL Hematocrit 29.9 % 23.7 % Mean Corpuscular Volume 83.4 FL 83.5 FL Mean Corpuscular Hemoglobin 28.2 PG 27.7 PG Mean Corpuscular Hemoglobin 33.8 % 33.2 % Concent Red Cell Distribution Width 12.8 % 13.6 % Platelet Count 309 TH/MM3 254 TH/MM3 Mean Platelet Volume 9.3 FL 8.7 FL Neutrophils (%) (Auto) % 90.0 % Lymphocytes (%) (Auto) % 3.2 % Monocytes (%) (Auto) % 6.7 % Eosinophils (%) (Auto) % 0.0 % Basophils (%) (Auto) % 0.1 % Neutrophils # (Auto) TH/MM3 13.5 TH/MM3 Lymphocytes # (Auto) TH/MM3 0.5 TH/MM3 Monocytes # (Auto) TH/MM3 1.0 TH/MM3 Eosinophils # (Auto) TH/MM3 0.0 TH/MM3 Basophils # (Auto) TH/MM3 0.0 TH/MM3 CBC Comment AUTO DIFF DIFF FINAL Differential Total Cells 100 Counted Neutrophils % (Manual) 88 % Band Neutrophils % 3 % Lymphocytes % 6 % Monocytes % 3 % Neutrophils # (Manual) 19.5 TH/MM3 Differential Comment FINAL DIFF MANUAL Platelet Estimate NORMAL Platelet Morphology Comment NORMAL Sodium Level 135 MEQ/L 140 MEQ/L Potassium Level 3.6 MEQ/L 2.9 MEQ/L Chloride Level 98 MEQ/L 109 MEQ/L Carbon Dioxide Level 22.5 MEQ/L 18.3 MEQ/L Anion Gap 15 MEQ/L 13 MEQ/L Blood Urea Nitrogen 33 MG/DL 28 MG/DL Creatinine 1.00 MG/DL 0.70 MG/DL Estimat Glomerular Filtration 52 ML/MIN 79 ML/MIN Rate Random Glucose 111 MG/DL 112 MG/DL Calcium Level 9.1 MG/DL 7.7 MG/DL Total Bilirubin 1.1 MG/DL 0.6 MG/DL Direct Bilirubin 0.4 MG/DL Indirect Bilirubin 0.7 MG/DL Aspartate Amino Transf 36 U/L 23 U/L (AST/SGOT) Alanine Aminotransferase 22 U/L 16 U/L (ALT/SGPT) Alkaline Phosphatase 84 U/L 62 U/L Total Protein 7.9 GM/DL 5.5 GM/DL Albumin 2.9 GM/DL 1.9 GM/DL Lipase 127 U/L Urine Collection Type CATH Urine Color YELLOW Urine Turbidity CLEAR Urine pH 6.0 Urine Specific [place] 1.019 Urine Protein 100 mg/dL Urine Glucose (UA) NEG mg/dL Urine Ketones TRACE mg/dL Urine Occult Blood TRACE Urine Nitrite NEG Urine Bilirubin NEG Urine Leukocyte Esterase NEG Urine WBC 0-2 /hpf Urine Transitional Epithelial 0-5 /hpf Cells Urine Hyaline Casts 20-24 /lpf Microscopic Urinalysis Comment CATH-CULT NOT IND Urine Collection Time 12:50 Phosphorus Level 3.0 MG/DL Physical Examination HEENT: Pupils round and reactive to light; normocephalic; atraumatic; no jaundice. Throat is clear. NECK: Neck is supple, no JVD, no lymphadenopathy. CHEST: Chest is clear to auscultation and percussion. CARDIAC: Regular rate and rhythm with no murmur gallop or rubs. ABDOMEN: Soft, nondistended, tenderness on the right side upon palpation ; no hepatosplenomegaly; bowel sounds are present in all four quadrants. jimi tube EXTREMITIES: No clubbing, cyanosis, or edema. SKIN: Normal; no rash; no jaundice. COMMUNICATIONS ASSISTANT: No focal deficits; alert and oriented times three. (Denton Wade) Assessment and Plan Plan - Dilated CBD of unknown etiology- She endorses bad case of diarrhea X 2 days, states this cleared up then the pain started, she couldn't move, every time she moved, the pain was intolerable, constant 10 on the scale from 0-10, associated with nausea, but no vomiting, patient hasn't been eating very well for the past 2 days. Patient lives alone, she wears the alert for help device, she asked for help and was brought to [facility] for further evaluation. Workup in the emergency department included CT a abdomen which showed Markedly abnormal biliary tree with intra-and extrahepatic biliary duct dilatation, hydropic gallbladder and marked gallbladder wall thickening. Etiology for biliary obstruction is uncertain. However, there is distention of the second portion of the duodenum in the region of the ampulla. LFTs normal. HIDA, MRCP ordered but pending. - Acute cholecystitis- She was evaluated by GS and under went percutaneous cholecystostomy with IR. - Leukocytosis- improving - Zosyn - A-fib with RVR- per CCM - Acute Hypotension- secondary to above - Chronic anemia- no bleeding reported, base line around 9, today is 7.9, could be dilutional effect Plan: - NPO - Await HIDA, MRCP - Monitor labs - Pending results above, patient might need ERCP vs EGD - Supportive care - Patient seen and examined by Dr. Kendrick and myself and this note is written on her behalf. (Denton Wade) Physician Comments seen, examined agree with above will prefer noninvasive approach as much as possible clear liquids (Lalita Kendrick MD) Denton aWde May 16, 2016 08:55 Lalita Kendrick MD May 16, 2016 10:44
[2016-05-16] MEDS: SODIUM CHLOR 0.9% 1000 ML INJ 1,000 ML IV SCH ×2 (09:00→20:45)
[2016-05-16] MEDS ORDERED: CALCIUM GLUCONATE INJ 1 GM in SODIUM CHLORIDE 0.9% INJ 100 ML IV ONE (09:00)
[2016-05-16] MEDS: FLUTICASONE PROPIONATE 50 MCG/ACT 16 GM NASAL SPRAY EACH NARE SCH ×2 (09:00→20:38)
[2016-05-16] MEDS: SODIUM CHLORIDE 0.9% FLUSH 10 ML FLUSH IV FLUSH SCH ×2 (09:00→20:54)
[2016-05-16] MEDS: FLUTICASONE PROPIONATE 110 MCG/ACT 12 GM INHALER INH SCH ×2 (09:04→20:38)
[2016-05-16] MEDS: ARTIFICIAL TEARS OPTH SOLN 15 ML BTL EACH EYE SCH ×3 (10:46→17:12)
--- NOTE | 2016-05-16 14:05 | RADRPT ---
EXAM DATE/TIME: 05/16/2016 11:30 [place] COMPARISON: No previous studies available for comparison. INDICATIONS : Right sided abdominal pain for one day. DOSE: 4 mCi Tc99m Mebrofenin IV MEDICAL HISTORY : Renal failure, chrnoic. Hypertension. SURGICAL HISTORY : None. ENCOUNTER: Initial ACUITY: 1 day PAIN SCALE: 10/10 LOCATION: Right upper quadrant TECHNIQUE: Following the intravenous administration of radiotracer, dynamic sequential images were performed wit h continuous acquisition. FINDINGS: HEPATIC KINETICS: There is prompt uptake of radiotracer in the liver. No focal defects are seen. There is normal rate of washout from the hepatic parenchyma. BILIARY CLEARANCE: Activity is first seen in the extrahepatic biliary system at 20 minutes. There is normal excretion i nto the small bowel. GALLBLADDER: Activity is first seen in the gallbladder at 15 minutes. Common bile duct kinetics are normal and th ere is no evidence of biliary obstruction. BILIARY ENTRIC REFLUX: None observed. CONCLUSION: Normal examination. Tiffany Franks MD on May 16, 2016 at 14:02 Board Certified Radiologist. This report was verified electronically.
[2016-05-16 16:51] LABS: HEMATOCRIT 21.1 % (35.0-46.0); MEAN CORPUSCULAR HEMOGLOBIN 28.5 PG (27.0-34.0); MEAN CORPUSCULAR HGB CONC 33.9 % (32.0-36.0); PLATELET COUNT 244 TH/MM3 (150-450); RED CELL DISTRIBUTION WIDTH 13.4 % (11.6-17.2); REVIEW FLAG FINAL; WHITE BLOOD COUNT 10.7 TH/MM3 (4.0-11.0)
[2016-05-16 17:26] LABS: POTASSIUM 3.2 MEQ/L (3.5-5.1)
--- NOTE | 2016-05-16 17:29 | EKG ---
Date Performed: 05/16/2016 Time Performed: 07:59:36 PTAGE: 86 years EKG: ATRIAL FLUTTER/TACHYCARDIA NONSPECIFIC ST & T-WAVE ABNORMALITY Compared to previous tracing , the patient is no longer in Sinus rhythm ABNORMAL ECG PREVIOUS TRACING : 08/14/2011 17.54 DOCTOR: Felice Sosa Interpretating Date/Time 05/16/2016 17:29:13
[2016-05-16] MEDS ORDERED: FUROSEMIDE 20 MG/2 ML VIAL IV PUSH SCH (17:30)
[2016-05-16 17:41] LABS: MAGNESIUM 1.9 MG/DL (1.5-2.5)
--- NOTE | 2016-05-16 20:01 | EC ---
Study Study Date:05/16/2016 STUDY CONCLUSIONS SUMMARY - Left ventricle: The cavity size was normal. Wall thickness was increased in a pattern of mild LVH. Systolic function was normal. The estimated ejection fraction was 60%. Wall motion was normal; there were no regional wall motion abnormalities. - Aortic valve: Calcified annulus. Trileaflet; moderately thickened, moderately calcified leaflets. Transvalvular velocity was increased, due to stenosis. There was moderate stenosis. - Mitral valve: Calcified annulus. Moderately thickened, mildly calcified leaflets, . Mild regurgitation. - Tricuspid valve: Moderate regurgitation. - Pulmonary arteries: Systolic pressure was moderately increased. PA peak pressure: 56mm Hg (S). If LV function is below 40, please consider prescribing an ACEI or ARB or document rationale for non-use. PROCEDURE DATA STUDY STATUS: Elective. Procedure: Transthoracic echocardiography. Image quality was good. Scanning was performed from the parasternal, apical, and subcostal acoustic windows. Study completion: The patient tolerated the procedure well. Transthoracic echocardiography. M-mode, complete 2D, complete spectral Doppler, and color Doppler. Height: Height: 67in. Weight: Weight: 109.8lb. Body mass index: BMI: 17.2kg/m^2. Body surface area: BSA: 1.57m^2. Patient status: Inpatient. CARDIAC ANATOMY LEFT VENTRICLE: The cavity size was normal. Wall thickness was increased in a pattern of mild LVH. Systolic function was normal. The estimated ejection fraction was 60%. Wall motion was normal; there were no regional wall motion abnormalities. AORTIC VALVE: Calcified annulus. Trileaflet; moderately thickened, moderately calcified leaflets. Doppler: Transvalvular velocity was increased, due to stenosis. There was moderate stenosis. No regurgitation. Valve area: 0.36cm^2(VTI). Indexed valve area: 0.23cm^2/m^2 (VTI). Valve area: 0.36cm^2 (Vmax). Indexed valve area: 0.23cm^2/m^2 (Vmax). Mean gradient: 32mm Hg (S). Peak gradient: 50mm Hg (S). AORTA: Aortic root: The aortic root was normal in size. MITRAL VALVE: Calcified annulus. Moderately thickened, mildly calcified leaflets, . Doppler: Transvalvular velocity was within the normal range. There was no evidence for stenosis. Mild regurgitation. Peak gradient: 4mm Hg (D). LEFT ATRIUM: The atrium was normal in size. RIGHT VENTRICLE: The cavity size was normal. Wall thickness was normal. PULMONIC VALVE: Doppler: Transvalvular velocity was within the normal range. There was no evidence for stenosis. No regurgitation. TRICUSPID VALVE: Structurally normal valve. Doppler: Transvalvular velocity was within the normal range. Moderate regurgitation. PULMONARY ARTERY: The main pulmonary artery was normal-sized. Systolic pressure was moderately increased. RIGHT ATRIUM: The atrium was normal in size. PERICARDIUM: There was no pericardial effusion. SYSTEMIC VEINS: Inferior vena cava: The vessel was normal in size. Patient weight: 109.8lb _Ejection fraction:_ 65-75% _Fractional shortening:_ 32% up to 5Kg 5-11.5Kg 11.6-22.9Kg 23-45Kg 45-57Kg Aortic Root 7-13 <17 13-22 17-27 17-27 LA diam 6-13 <23 24-38 33-47 37-40 RVID 10-17 7-15 7-15 7-18 8-17 LVIDd 12-22 <32 24-38 33-47 37-40 LVPW 2-4 3-6 5-7 6-8 7-8 IVS 2-4 3-6 5-7 6-8 7-8 BASIC MEASUREMENTS ADULT NORMAL Left ventricle LV internal dimension, ED, chordal *33.8 mm 43-52 level, PLAX LV internal dimension, ES, chordal 25.4 mm 23-38 level, PLAX Fractional shortening, chordal level, *25 % >29 PLAX LV posterior wall thickness, ED 11.9 mm IVS/LVPW ratio, ED 0.99 <1.3 Ventricular septum Septal thickness, ED 11.8 mm Aorta Root diameter, ED 26 mm Left atrium Anterior-posterior dimension 23 mm Anterior-posterior dimension index 1.46 cm/m^2 <2.2 DOPPLER MEASUREMENTS ADULT NORMAL Main pulmonary artery Pressure, S *56 mm Hg =30 Aortic valve Peak velocity, S 355 cm/s Mean velocity, S 272 cm/s VTI, S 86.8 cm Mean gradient, S 32 mm Hg Peak gradient, S 50 mm Hg Valve area, VTI 0.36 cm^2 Valve area index, VTI 0.23 cm^2/m^2 Valve area, Vmax 0.36 cm^2 Valve area index, Vmax 0.23 cm^2/m^2 Mitral valve Peak E-wave velocity 101 cm/s Peak A-wave velocity 144 cm/s Deceleration time 197 ms 150-230 Peak gradient, D 4 mm Hg Peak E/A ratio 0.7 Tricuspid valve Regurgitant peak velocity 339 cm/s Peak RV-RA gradient, S 46 mm Hg Maximal regurgitant velocity 339 cm/s Systemic veins Estimated CVP 10 mm Hg Right ventricle RV pressure, S *56 mm Hg <30 LEGEND: Mean values are shown as u=mean value. Asterisk (*) lieberman values outside specified normal range. Prepared and signed by Kandy Palumbo [id number]
[2016-05-17] VITALS (13 sets, daily range): BP systolic 132–168; BP diastolic 60–81; PULSE 75–150; RESP 22–28; TEMP 97–98.7; O2SAT 96–98
[2016-05-17] MEDS ORDERED: LABETALOL HCL 100 MG/20 ML VIAL IV PUSH PRN
[2016-05-17] MEDS: PIPERACIL-TAZO 3.375 GM PREMIX 50 ML IV SCH ×4 (02:55→20:57)
[2016-05-17] MEDS: CHLORHEXIDINE GLUCONATE 2 % 1 PACK (2 CLOTHS) TOP SCH (04:00)
[2016-05-17] MEDS ORDERED: AMIODARONE 200 MG TAB PO ONE (04:00)
[2016-05-17] MEDS: LEVOTHYROXINE SODIUM 50 MCG TAB PO SCH (04:25)
[2016-05-17] MEDS: SODIUM CHLOR 0.9% 1000 ML INJ 1,000 ML IV SCH (04:26)
[2016-05-17 05:50] LABS: AUTOMATED NEUTROPHIL # 10.5 TH/MM3 (1.8-7.7); BASOPHIL % 0.1 % (0.0-2.0); EOSINOPHIL % 0.1 % (0.0-4.0); HEMATOCRIT 28.4 % (35.0-46.0); HEMO FLAGS DIFF FINAL; LYMPH % 8.6 % (9.0-44.0); LYMPHOCYTE # 1.1 TH/MM3 (1.0-4.8); MEAN CELL VOLUME 83.2 FL (80.0-100.0); MEAN CORPUSCULAR HEMOGLOBIN 27.7 PG (27.0-34.0); MEAN CORPUSCULAR HGB CONC 33.3 % (32.0-36.0); MONO % 7.6 % (0.0-8.0); NEUT % 83.6 % (16.0-70.0); PLATELET COUNT 292 TH/MM3 (150-450); RED BLOOD COUNT 3.41 MIL/MM3 (4.00-5.30); WHITE BLOOD COUNT 12.6 TH/MM3 (4.0-11.0)
[2016-05-17 05:53] LABS: APTT (PATIENT) 28.9 SEC (24.3-30.1); PROTHROMBIN TIME - PATIENT 10.5 SEC (9.8-11.6)
[2016-05-17 06:08] LABS: ALKALINE PHOSPHATASE 77 U/L (45-117); ALT (GPT) 28 U/L (10-53); ANION GAP 10 MEQ/L (5-15); AST (GOT) 44 U/L (15-37); BICARBONATE 20.8 MEQ/L (21.0-32.0); BLOOD UREA NITROGEN 18 MG/DL (7-18); CHLORIDE 108 MEQ/L (98-107); GLOMERULAR FILTRATION RATE 79 ML/MIN (>89); MAGNESIUM 1.6 MG/DL (1.5-2.5); POTASSIUM 3.1 MEQ/L (3.5-5.1); SODIUM (NA) 139 MEQ/L (136-145); TOTAL BILIRUBIN ADULT 1.6 MG/DL (0.2-1.0)
[2016-05-17] MEDS: POTASSIUM CHLOR 20 MEQ PREMIX 100 ML IV PRN ×2 (06:15→06:16)
[2016-05-17] MEDS ORDERED: SODIUM PHOSPHATE INJ 30 MMOL in SODIUM CHLOR 0.9% 250 ML INJ 250 ML IV ONE (06:45)
[2016-05-17] MEDS ORDERED: POTASSIUM CHLORIDE 10 MEQ CONTROLLED RELEASE TAB PO ONE ×2 (06:45→16:15)
[2016-05-17] MEDS: MAGNESIUM SULFATE 1 GM PREMIX 100 ML IV SCH ×4 (06:45→12:30)
--- NOTE | 2016-05-17 06:46 | HHI.CCPN ---
Subjective Remarks/Hospital Course 86-year-old very pleasant white female presents with abdominal pain, nausea and vomiting. Her workup in the emergency department included CT a abdomen which showed significant dilation of the bile ducts with large dilated gallbladder. The patient was admitted to medicine however while in the emergency department she developed rapid atrial f ablation ib with ventricular response of 150 and was started on Cardizem bolus and drip. She developed hypotension and is receiving bolus IV fluid and now is admitted to intensive care unit. Surgery has already been aware. 05/16: Status post 7 Welsh cholecystostomy tube placed by IR overnight secondary to acute cholecystitis. Patient was initiated on amiodarone drip due to A. fib with RVR. Currently resting in bed. Pain right upper quadrant currently 3 out of 10. Hemodynamic stable not on vasopressors. Subjective 05/17: Afebrile. Confused overnight and took off all leads. One episode of A. fib with RVR overnight converted to normal sinus rhythm with ectopy. Magnesium , potassium and answers all low. Currently been replaced would recheck this afternoon. Abdominal pain is well-controlled. Tolerating clear liquid diet. Objective Vital Signs Date Time Temp Pulse Resp B/P Pulse Ox O2 Delivery O2 Flow Rate FiO2 05/17/16 06:00 80 05/17/16 04:00 98.7 23 168/69 96 05/16/16 19:37 Room Air 05/16/16 07:52 21 Intake and Output 05/16/16 05/16/16 05/17/16 08:00 16:00 00:00 Intake Total 1680 ml 859 ml 1285 ml Output Total 900 ml 275 ml 285 ml Balance 780 ml 584 ml 1000 ml Result Diagram: 05/17/16 0434 05/17/16 0434 Imaging Last Impressions Hepatobiliary Scan Nuclear Medicine 05/16/16 0000 Signed Impressions: Service Date/Time: Monday, May 16, 2016 11:30 - CONCLUSION: Normal examination. Tiffany Franks MD Percutaneous Cholangiogram 05/15/16 0000 Signed Impressions: Service Date/Time: Sunday, May 15, 2016 17:52 - CONCLUSION: Uncomplicated percutaneous cholecystostomy as above. Nagi Robbins MD Abdomen/Pelvis CT 05/15/16 0000 Signed Impressions: Service Date/Time: Sunday, May 15, 2016 12:55 - CONCLUSION: 1. Markedly abnormal biliary tree with intra-and extrahepatic biliary duct dilatation, hydropic gallbladder and marked gallbladder wall thickening. 2. Etiology for biliary obstruction is uncertain. However, there is distention of the second portion of the duodenum in the region of the ampulla. 3. Bibasilar atelectatic changes/scarring, right greater than left. 4. Cortical scarring and thinning of the left kidney. This may be the result of some vascular compromise. Degenerated uterine fibroids. Luis Rowe MD Objective Remarks GENERAL: 86-year-old female, critically ill currently resting in bed in no acute distress SKIN: Warm and dry. No rash HEAD: Atraumatic. Normocephalic. EYES: Pupils equal and round about 2 mm bilaterally and reactive. No scleral icterus. No injection or drainage. ENT: No nasal bleeding or discharge. Mucous membranes pink and moist. NECK: Trachea midline. No JVD. Supple CARDIOVASCULAR: RRR with ectopy. S1, S2 no S4. 1/6 murmur right upper sternal border. RESPIRATORY: Clear to auscultation bilaterally without wheezes, rales or rhonchi. Breath sounds equal bilaterally. GASTROINTESTINAL: Abdomen soft, tender to palpation right upper quadrant epigastric region with voluntary guarding/no rigidity. Hypoactive bowel sounds MUSCULOSKELETAL: Extremities without significant peripheral edema. No obvious deformities. NEUROLOGICAL: Awake and alert. No obvious cranial nerve deficits. Motor grossly within normal limits. Five out of 5 muscle strength in the arms and legs. Normal speech. A/P Problem List: (1) Acute cholecystitis ICD Code: K81.0 Status: Acute (2) Hypotension ICD Code: I95.9 Status: Acute (3) Rapid atrial fibrillation ICD Code: I48.91 Status: Acute Assessment and Plan Neuro/Psych: History of benign essential tremor Acute management of cholecystitis pain Allergic rhinitis Acetaminophen for fever Ki[place]/as needed morphine for pain management Noted allergy primidone for BET Holding Eryn 180 mg by mouth daily for allergies Continuing Flonase 50 mcg 2 nasal inhalations 2 times a day for rhinitis CV: A. fib with RVR Hypertension Dyslipidemia Initially treated with Cardizem drip Currently on amiodarone drip after receiving 150 mg IV bolus per protocol. This will be discontinued today Initially holding losartan 25 mg by mouth twice a day/Norvasc 5 mg by mouth twice a day/home medications with low blood pressure Now normotensive will restart Norvasc at 5 mg daily and losartan at 25 mg daily 2-D echocardiogram - EF 60%. No regional wall motion abnormality. Moderate left ear, mild MR, moderate TR, CAYETANO 56 mmHg. Troponin was 0.05. TSH was 0.68 [place] is being repleted. Recheck this afternoon Resp: History of mild intermittent asthma Continue Flovent 2 puffs twice a day and as needed albuterol nebs every 4 hours. Nasal cannula to maintain saturations greater than equal to 92% Incentive spirometry while awake Follow-up on a.m. chest x-ray in a.m. 05/18 GI: Acute cholecystitis - followed by general surgery Status post #7 Welsh cholecystostomy tube placed by IR 05/15 History diverticulitis Hypo-albuminemia CT abdomen/post revealed intra-and extrabiliary duct dilatation. Hydrops gallbladder. Second part of duodenum with distention. -35 bilous output from cholecystostomy drain. Patient had a negative HIDA scan yesterday. MRCP pending. 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 No follow-up indicated Endo: Hypothyroidism Currently Levoxyl 50 g by mouth daily./Home dosage Check TSH Sliding-scale insulin with Accu-Cheks to maintain euglycemia/every 6 hours Renal: Left renal cortical thinning. Currently on normal saline 100 cc an hour. Accurate I's and O's Monitor urine output Heme: Leukocytosis Normocytic anemia Monitor CBC/coags Transfuse 1 unit. Received yesterday ID: Acute cholecystitis Day #3 Zosyn. Received Unasyn at [facility] Pertinent cultures Blood cultures 2 - no growth FEN: Hypocalcemia Hypokalemia Hypophosphatemia Hypo-magnesium Replace electrolytes per ICU electrolyte protocol. Check potassium and magnesium at 1600 MSK: Osteoarthritis/osteoporosis Holding calcium with vitamin D. Resume when clinically indicated PTs evaluate and treat Access - Utilize peripheral IV. Central line if indicated Prophylaxis - GI - Protonix - DVT - SCD/pharmacological prophylaxis when okayed with general surgery Critical Care: The total care time was 35 minutes. Time to perform other separately billable procedures was not included in the critical care time. Patient is stable from a critical care medicine standpoint. We'll transfer to [facility] and assign care to hospitalist in a.m. 05/18 Eliecer Collins MD May 17, 2016 06:46
[2016-05-17] MEDS: ENOXAPARIN SODIUM 40 MG/0.4 ML SYRINGE SQ SCH (08:00)
[2016-05-17] MEDS: ARTIFICIAL TEARS OPTH SOLN 15 ML BTL EACH EYE SCH ×3 (09:00→17:11)
[2016-05-17] MEDS: FLUTICASONE PROPIONATE 50 MCG/ACT 16 GM NASAL SPRAY EACH NARE SCH ×2 (09:15→20:57)
[2016-05-17] MEDS: FLUTICASONE PROPIONATE 110 MCG/ACT 12 GM INHALER INH SCH ×2 (09:15→20:57)
[2016-05-17] MEDS: SODIUM CHLORIDE 0.9% FLUSH 10 ML FLUSH IV FLUSH SCH ×2 (09:16→20:57)
[2016-05-17] MEDS: amLODIPine BESYLATE 5 MG TAB PO SCH (10:10)
[2016-05-17] MEDS: DOCUSATE SODIUM 100 MG CAP PO SCH ×2 (10:10→20:57)
[2016-05-17] MEDS: LOSARTAN 25 MG TAB PO SCH (10:10)
[2016-05-17] MEDS: PANTOPRAZOLE SODIUM 40 MG VIAL IV SCH (10:10)
[2016-05-17 16:02] LABS: MAGNESIUM 2.1 MG/DL (1.5-2.5); POTASSIUM 3.1 MEQ/L (3.5-5.1)
--- NOTE | 2016-05-17 18:07 | HHI.GIFU ---
GI Follow-up Note Consult Follow-up Subjective: Patient laying in bed comfortably, feeling better.No nausea, vomiting. MRCP pending .Approximately 20 cc from biliary drainage Objective: PHYSICAL EXAMINATION: Vitals signs stable No fever Vital Signs Date Time Temp Pulse Resp B/P Pulse Ox O2 Delivery O2 Flow Rate FiO2 05/17/16 16:00 98.3 101 28 150/69 97 05/17/16 12:00 97.9 92 22 132/60 98 HEENT: Pupils round and reactive to light; normocephalic; atraumatic; no jaundice. Throat is clear. NECK: Neck is supple, no JVD, no lymphadenopathy. CHEST: Chest is clear to auscultation and percussion. CARDIAC: Regular rate and rhythm with no murmur gallop or rubs. ABDOMEN: Soft, nondistended, nontender; no hepatosplenomegaly; bowel sounds are present in all four quadrants, biliary drainage in place EXTREMITIES: No clubbing, cyanosis, or edema. SKIN: Normal; no rash; no jaundice. SCADA TECHNICIAN: No focal deficits; alert and oriented times three. Available Data (labs, X- Rays, Procedues) : Laboratory Tests Test 05/16/16 05/16/16 05/16/16 05/16/16 04:06 15:58 19:00 19:34 White Blood Count 14.9 TH/MM3 10.7 TH/MM3 Red Blood Count 2.84 MIL/MM3 2.50 MIL/MM3 Hemoglobin 7.9 GM/DL 7.1 GM/DL Hematocrit 23.7 % 21.1 % Mean Corpuscular Volume 83.5 FL 84.0 FL Mean Corpuscular Hemoglobin 27.7 PG 28.5 PG Mean Corpuscular Hemoglobin 33.2 % 33.9 % Concent Red Cell Distribution Width 13.6 % 13.4 % Platelet Count 254 TH/MM3 244 TH/MM3 Mean Platelet Volume 8.7 FL 8.9 FL Neutrophils (%) (Auto) 90.0 % Lymphocytes (%) (Auto) 3.2 % Monocytes (%) (Auto) 6.7 % Eosinophils (%) (Auto) 0.0 % Basophils (%) (Auto) 0.1 % Neutrophils # (Auto) 13.5 TH/MM3 Lymphocytes # (Auto) 0.5 TH/MM3 Monocytes # (Auto) 1.0 TH/MM3 Eosinophils # (Auto) 0.0 TH/MM3 Basophils # (Auto) 0.0 TH/MM3 CBC Comment DIFF FINAL Differential Comment Sodium Level 140 MEQ/L Potassium Level 2.9 MEQ/L 3.2 MEQ/L Chloride Level 109 MEQ/L Carbon Dioxide Level 18.3 MEQ/L Anion Gap 13 MEQ/L Blood Urea Nitrogen 28 MG/DL Creatinine 0.70 MG/DL Estimat Glomerular Filtration 79 ML/MIN Rate Random Glucose 112 MG/DL Calcium Level 7.7 MG/DL Phosphorus Level 3.0 MG/DL Total Bilirubin 0.6 MG/DL Aspartate Amino Transf 23 U/L (AST/SGOT) Alanine Aminotransferase 16 U/L (ALT/SGPT) Alkaline Phosphatase 62 U/L Total Protein 5.5 GM/DL Albumin 1.9 GM/DL Lactic Acid Level 1.7 mmol/L Magnesium Level 1.9 MG/DL Total Creatine Kinase 96 U/L Troponin I 0.05 NG/ML Thyroid Stimulating Hormone 0.687 uIU/ML 3rd Gen Nasal Screen MRSA (PCR) NEGATIVE Blood Type A POSITIVE Antibody Screen NEGATIVE Crossmatch Leukocyte-Reduced Red Blood Cells Blood Bank Comment Test 05/16/16 05/17/16 05/17/16 20:29 04:34 15:23 Blood Type A POSITIVE White Blood Count 12.6 TH/MM3 Red Blood Count 3.41 MIL/MM3 Hemoglobin 9.5 GM/DL Hematocrit 28.4 % Mean Corpuscular Volume 83.2 FL Mean Corpuscular Hemoglobin 27.7 PG Mean Corpuscular Hemoglobin 33.3 % Concent Red Cell Distribution Width 13.0 % Platelet Count 292 TH/MM3 Mean Platelet Volume 9.1 FL Neutrophils (%) (Auto) 83.6 % Lymphocytes (%) (Auto) 8.6 % Monocytes (%) (Auto) 7.6 % Eosinophils (%) (Auto) 0.1 % Basophils (%) (Auto) 0.1 % Neutrophils # (Auto) 10.5 TH/MM3 Lymphocytes # (Auto) 1.1 TH/MM3 Monocytes # (Auto) 1.0 TH/MM3 Eosinophils # (Auto) 0.0 TH/MM3 Basophils # (Auto) 0.0 TH/MM3 CBC Comment DIFF FINAL Differential Comment Prothrombin Time 10.5 SEC Prothromb Time International 1.0 RATIO Ratio Activated Partial 28.9 SEC Thromboplast Time Sodium Level 139 MEQ/L Potassium Level 3.1 MEQ/L 3.1 MEQ/L Chloride Level 108 MEQ/L Carbon Dioxide Level 20.8 MEQ/L Anion Gap 10 MEQ/L Blood Urea Nitrogen 18 MG/DL Creatinine 0.70 MG/DL Estimat Glomerular Filtration 79 ML/MIN Rate Random Glucose 111 MG/DL Calcium Level 8.6 MG/DL Phosphorus Level 1.3 MG/DL Magnesium Level 1.6 MG/DL 2.1 MG/DL Total Bilirubin 1.6 MG/DL Aspartate Amino Transf 44 U/L (AST/SGOT) Alanine Aminotransferase 28 U/L (ALT/SGPT) Alkaline Phosphatase 77 U/L Total Protein 6.9 GM/DL Albumin 3.2 GM/DL ASSESSMENT/PLAN: acute cholecystitis s/p cholecystostomy tube dilated biliary tree on ct, no obvious pathology noted Recommendations advance diet mrcp in am , after breakfast she is not in favor of any invasive procedures It was a pleasure seeing Priti Magana Thank you for this consult. Entered by: Lalita Beverly MD May 17, 2016 18:07
[2016-05-18] VITALS (30 sets, daily range): BP systolic 113–159; BP diastolic 64–77; PULSE 71–114; RESP 16–20; TEMP 97.3–99; O2SAT 97–99
[2016-05-18] MEDS: CHLORHEXIDINE GLUCONATE 2 % 1 PACK (2 CLOTHS) TOP SCH (03:06)
[2016-05-18] MEDS: PIPERACIL-TAZO 3.375 GM PREMIX 50 ML IV SCH ×4 (03:09→21:51)
[2016-05-18 05:11] LABS: AUTOMATED NEUTROPHIL # 6.6 TH/MM3 (1.8-7.7); BASOPHIL % 0.1 % (0.0-2.0); EOSINOPHIL % 0.3 % (0.0-4.0); HEMATOCRIT 30.1 % (35.0-46.0); HEMO FLAGS DIFF FINAL; LYMPH % 12.5 % (9.0-44.0); LYMPHOCYTE # 1.1 TH/MM3 (1.0-4.8); MEAN CELL VOLUME 82.3 FL (80.0-100.0); MEAN CORPUSCULAR HEMOGLOBIN 27.9 PG (27.0-34.0); MEAN CORPUSCULAR HGB CONC 33.9 % (32.0-36.0); MONO % 10.2 % (0.0-8.0); NEUT % 76.9 % (16.0-70.0); PLATELET COUNT 309 TH/MM3 (150-450); RED BLOOD COUNT 3.66 MIL/MM3 (4.00-5.30); RED CELL DISTRIBUTION WIDTH 13.5 % (11.6-17.2); WHITE BLOOD COUNT 8.5 TH/MM3 (4.0-11.0)
[2016-05-18 05:23] LABS: ALKALINE PHOSPHATASE 78 U/L (45-117); ALT (GPT) 27 U/L (10-53); ANION GAP 10 MEQ/L (5-15); AST (GOT) 28 U/L (15-37); BICARBONATE 27.2 MEQ/L (21.0-32.0); BLOOD UREA NITROGEN 9 MG/DL (7-18); CHLORIDE 102 MEQ/L (98-107); GLOMERULAR FILTRATION RATE 102 ML/MIN (>89); MAGNESIUM 1.9 MG/DL (1.5-2.5); POTASSIUM 3.8 MEQ/L (3.5-5.1); SODIUM (NA) 139 MEQ/L (136-145); TOTAL BILIRUBIN ADULT 0.9 MG/DL (0.2-1.0)
--- NOTE | 2016-05-18 05:53 | RADRPT ---
EXAM DATE/TIME: 05/18/2016 04:09 [facility] COMPARISON: CHEST SINGLE AP, August 14, 2011, 17:34. INDICATIONS : Shortness of breath, possible pulmonary disease. MEDICAL HISTORY : Chronic renal failure. Hypertension SURGICAL HISTORY : None. ENCOUNTER: Initial ACUITY: 1 day PAIN SCORE: 0/10 LOCATION: Bilateral chest FINDINGS: A single view of the chest demonstrates the lungs to be symmetrically aerated without evidence of mas s, infiltrate or effusion. The cardiomediastinal contours are unremarkable. Osseous structures are intact. Skin fold seen along the left chest. CONCLUSION: No acute disease. Jorge Gupta MD on May 18, 2016 at 5:51 Board Certified Radiologist. This report was verified electronically.
[2016-05-18] MEDS: LEVOTHYROXINE SODIUM 50 MCG TAB PO SCH (05:59)
[2016-05-18] MEDS: ENOXAPARIN SODIUM 40 MG/0.4 ML SYRINGE SQ SCH (08:45)
[2016-05-18] MEDS: SODIUM CHLORIDE 0.9% FLUSH 10 ML FLUSH IV FLUSH SCH ×2 (08:46→21:00)
[2016-05-18] MEDS: amLODIPine BESYLATE 5 MG TAB PO SCH (08:46)
[2016-05-18] MEDS: PANTOPRAZOLE SODIUM 40 MG VIAL IV SCH (08:46)
[2016-05-18] MEDS: LOSARTAN 25 MG TAB PO SCH (08:46)
[2016-05-18] MEDS: ARTIFICIAL TEARS OPTH SOLN 15 ML BTL EACH EYE SCH ×3 (08:47→18:00)
[2016-05-18] MEDS: FLUTICASONE PROPIONATE 50 MCG/ACT 16 GM NASAL SPRAY EACH NARE SCH ×2 (08:47→21:52)
[2016-05-18] MEDS: DOCUSATE SODIUM 100 MG CAP PO SCH ×2 (08:48→21:00)
[2016-05-18] MEDS: FLUTICASONE PROPIONATE 110 MCG/ACT 12 GM INHALER INH SCH ×2 (08:48→21:52)
--- NOTE | 2016-05-18 17:29 | HHI.PR ---
Subjective Remarks Pt without any specific complaints. Some baseline confusion Afebrile. Review of telemetry noted some NSVT today, currently in NSR Objective Vitals Vital Signs Date Time Temp Pulse Resp B/P Pulse Ox O2 Delivery O2 Flow Rate FiO2 05/18/16 16:16 99.0 86 18 129/65 97 05/18/16 13:00 114 05/18/16 12:00 92 05/18/16 11:25 98.5 91 20 136/73 97 05/18/16 11:25 97 Room Air 05/18/16 10:00 88 05/18/16 09:00 102 05/18/16 08:45 98 Room Air 05/18/16 08:45 97.5 94 18 159/75 98 05/18/16 08:00 90 05/18/16 07:00 84 05/18/16 06:00 80 05/18/16 05:00 72 05/18/16 04:00 76 05/18/16 03:17 71 16 135/77 99 05/18/16 03:00 74 05/18/16 02:00 74 05/18/16 01:00 80 05/18/16 00:15 97.7 74 18 144/74 98 05/18/16 00:04 82 05/17/16 22:00 81 05/17/16 20:00 97 Room Air 05/17/16 20:00 92 05/17/16 20:00 98.1 92 27 166/74 97 05/17/16 18:00 90 05/17/16 05/17/16 05/18/16 15:00 23:00 07:00 Intake Total 1566 ml 625 ml 100 ml Output Total 3095 ml 1695 ml 410 ml Balance -1529 ml -1070 ml -310 ml Intake Oral 240 ml 450 ml 50 ml IV Total 1326 ml 175 ml 50 ml Output Urine Total 3075 ml 1675 ml 400 ml Drainage Total 20 ml 20 ml 10 ml # Bowel Movements 0 2 1 Result Diagram: 05/18/16 0402 05/18/16 0402 Other Results Laboratory Tests Test 05/16/16 05/16/16 05/16/16 05/17/16 19:00 19:34 20:29 04:34 Nasal Screen MRSA (PCR) NEGATIVE Blood Type A POSITIVE A POSITIVE Antibody Screen NEGATIVE Crossmatch Leukocyte-Reduced Red Blood Cells Blood Bank Comment White Blood Count 12.6 TH/MM3 Red Blood Count 3.41 MIL/MM3 Hemoglobin 9.5 GM/DL Hematocrit 28.4 % Mean Corpuscular Volume 83.2 FL Mean Corpuscular Hemoglobin 27.7 PG Mean Corpuscular Hemoglobin 33.3 % Concent Red Cell Distribution Width 13.0 % Platelet Count 292 TH/MM3 Mean Platelet Volume 9.1 FL Neutrophils (%) (Auto) 83.6 % Lymphocytes (%) (Auto) 8.6 % Monocytes (%) (Auto) 7.6 % Eosinophils (%) (Auto) 0.1 % Basophils (%) (Auto) 0.1 % Neutrophils # (Auto) 10.5 TH/MM3 Lymphocytes # (Auto) 1.1 TH/MM3 Monocytes # (Auto) 1.0 TH/MM3 Eosinophils # (Auto) 0.0 TH/MM3 Basophils # (Auto) 0.0 TH/MM3 CBC Comment DIFF FINAL Differential Comment Prothrombin Time 10.5 SEC Prothromb Time International 1.0 RATIO Ratio Activated Partial 28.9 SEC Thromboplast Time Sodium Level 139 MEQ/L Potassium Level 3.1 MEQ/L Chloride Level 108 MEQ/L Carbon Dioxide Level 20.8 MEQ/L Anion Gap 10 MEQ/L Blood Urea Nitrogen 18 MG/DL Creatinine 0.70 MG/DL Estimat Glomerular Filtration 79 ML/MIN Rate Random Glucose 111 MG/DL Calcium Level 8.6 MG/DL Phosphorus Level 1.3 MG/DL Magnesium Level 1.6 MG/DL Total Bilirubin 1.6 MG/DL Aspartate Amino Transf 44 U/L (AST/SGOT) Alanine Aminotransferase 28 U/L (ALT/SGPT) Alkaline Phosphatase 77 U/L Total Protein 6.9 GM/DL Albumin 3.2 GM/DL Test 05/17/16 05/17/16 05/18/16 15:23 19:52 04:02 Potassium Level 3.1 MEQ/L 3.8 MEQ/L 3.8 MEQ/L Magnesium Level 2.1 MG/DL 1.9 MG/DL White Blood Count 8.5 TH/MM3 Red Blood Count 3.66 MIL/MM3 Hemoglobin 10.2 GM/DL Hematocrit 30.1 % Mean Corpuscular Volume 82.3 FL Mean Corpuscular Hemoglobin 27.9 PG Mean Corpuscular Hemoglobin 33.9 % Concent Red Cell Distribution Width 13.5 % Platelet Count 309 TH/MM3 Mean Platelet Volume 8.9 FL Neutrophils (%) (Auto) 76.9 % Lymphocytes (%) (Auto) 12.5 % Monocytes (%) (Auto) 10.2 % Eosinophils (%) (Auto) 0.3 % Basophils (%) (Auto) 0.1 % Neutrophils # (Auto) 6.6 TH/MM3 Lymphocytes # (Auto) 1.1 TH/MM3 Monocytes # (Auto) 0.9 TH/MM3 Eosinophils # (Auto) 0.0 TH/MM3 Basophils # (Auto) 0.0 TH/MM3 CBC Comment DIFF FINAL Differential Comment Sodium Level 139 MEQ/L Chloride Level 102 MEQ/L Carbon Dioxide Level 27.2 MEQ/L Anion Gap 10 MEQ/L Blood Urea Nitrogen 9 MG/DL Creatinine 0.56 MG/DL Estimat Glomerular Filtration 102 ML/MIN Rate Random Glucose 97 MG/DL Calcium Level 8.2 MG/DL Phosphorus Level 1.9 MG/DL Total Bilirubin 0.9 MG/DL Aspartate Amino Transf 28 U/L (AST/SGOT) Alanine Aminotransferase 27 U/L (ALT/SGPT) Alkaline Phosphatase 78 U/L Total Protein 6.6 GM/DL Albumin 2.7 GM/DL Imaging Last Impressions Chest X-Ray 05/18/16 0600 Signed Impressions: Service Date/Time: Wednesday, May 18, 2016 04:09 - CONCLUSION: No acute disease. Jorge Gupta MD Hepatobiliary Scan Nuclear Medicine 05/16/16 0000 Signed Impressions: Service Date/Time: Monday, May 16, 2016 11:30 - CONCLUSION: Normal examination. Tiffany Franks MD Percutaneous Cholangiogram 05/15/16 0000 Signed Impressions: Service Date/Time: Sunday, May 15, 2016 17:52 - CONCLUSION: Uncomplicated percutaneous cholecystostomy as above. Nagi Robbins MD Abdomen/Pelvis CT 05/15/16 0000 Signed Impressions: Service Date/Time: Sunday, May 15, 2016 12:55 - CONCLUSION: 1. Markedly abnormal biliary tree with intra-and extrahepatic biliary duct dilatation, hydropic gallbladder and marked gallbladder wall thickening. 2. Etiology for biliary obstruction is uncertain. However, there is distention of the second portion of the duodenum in the region of the ampulla. 3. Bibasilar atelectatic changes/scarring, right greater than left. 4. Cortical scarring and thinning of the left kidney. This may be the result of some vascular compromise. Degenerated uterine fibroids. Luis Rowe MD Objective Remarks General: NAD Chest: CTA Cardiac: Regular Abd: +BS, soft ND/NT, cholecystostomy tube in place Ext: No edema A/P Problem List: (1) Acute cholecystitis Status: Acute Plan: - Pt presented to the ED at [facility] on 05/15/16 with abdominal pain, nausea and vomiting. She was noted to have leukocytosis with WBC count over 21,000 - CT Abd/pelvis (05/15) --> significant dilation of the bile ducts with large dilated gallbladder. - In the ED she developed rapid atrial fib with ventricular response of 150 and was started on Cardizem bolus and drip. She developed hypotension and received IV fluid and was admitted to [facility] - Pt was given Unasyn in the ED and started on Zosyn at admission - Surgery and GI were consulted. - Pt had a 7 Malian cholecystostomy tube placed by IR on 05/16. - HIDA Scan (05/17) with no obstruction. - General surgery is not planning for any surgical intervention at this time. She will need outpt followup with General Surgery - MRCP is ordered - LFTs have normalized - Pt does not want any invasive procedures per the GI notes. - Diet as tolerated - DVT prophylaxis with SCDs (2) Rapid atrial fibrillation Status: Acute Plan: - Pt was initially treated with Cardizem drip - She was changed to amiodarone drip after receiving 150 mg IV bolus. This was discontinued on 05/17 in [facility]. - Pts HR has been stable. - Review of telemetry noted some episodes NSVT today, currently in NSR - Cont. to monitor on telemetry. - Initially her Losartan 25 mg twice a day and Norvasc 5 mg twice a day were held due to low blood pressure - Her home meds were resume on 05/17 - We will stop the Norvasc and Start Metoprolol 25mg po BID tonight. - Monitor Vitals closely - 2-D echocardiogram noted - EF 60%. No regional wall motion abnormality. Moderate left ear, mild MR, moderate TR, CAYETANO 56 mmHg. (3) Hypotension Status: Acute Plan: - Resolved. (4) Asthma Status: Chronic Plan: - Cont. Flovent 2 puffs BID and as needed albuterol nebs every 4 hours. - IS - CXR (05/18) with no acute disease (5) Hypothyroidism Status: Chronic Plan: - Home meds continued. Assessment and Plan Patient examined. Assessment and plan formulated with Leila Norman PA-C. I agree with the above. Leila Norman May 18, 2016 17:29 Carmine Bradshaw DO May 21, 2016 23:32
[2016-05-18] MEDS: METOPROLOL TARTRATE 25 MG TAB PO SCH (21:51)
[2016-05-19] VITALS (27 sets, daily range): BP systolic 126–173; BP diastolic 60–78; PULSE 72–90; RESP 16–20; TEMP 97.1–98.6; O2SAT 96–99
[2016-05-19] MEDS: PIPERACIL-TAZO 3.375 GM PREMIX 50 ML IV SCH ×2 (03:21→08:47)
[2016-05-19] MEDS: CHLORHEXIDINE GLUCONATE 2 % 1 PACK (2 CLOTHS) TOP SCH (04:00)
[2016-05-19 06:00] LABS: AUTOMATED NEUTROPHIL # 5.2 TH/MM3 (1.8-7.7); BASOPHIL % 0.2 % (0.0-2.0); EOSINOPHIL # 0.1 TH/MM3 (0-0.4); HEMO FLAGS DIFF FINAL; LYMPH % 16.3 % (9.0-44.0); LYMPHOCYTE # 1.2 TH/MM3 (1.0-4.8); MEAN CELL VOLUME 82.8 FL (80.0-100.0); MEAN CORPUSCULAR HEMOGLOBIN 27.9 PG (27.0-34.0); MEAN CORPUSCULAR HGB CONC 33.7 % (32.0-36.0); MONO % 12.7 % (0.0-8.0); NEUT % 69.8 % (16.0-70.0); PLATELET COUNT 342 TH/MM3 (150-450); RED BLOOD COUNT 3.74 MIL/MM3 (4.00-5.30); RED CELL DISTRIBUTION WIDTH 13.2 % (11.6-17.2); WHITE BLOOD COUNT 7.5 TH/MM3 (4.0-11.0)
[2016-05-19 06:27] LABS: ANION GAP 8 MEQ/L (5-15); AST (GOT) 18 U/L (15-37); BICARBONATE 26.6 MEQ/L (21.0-32.0); BLOOD UREA NITROGEN 12 MG/DL (7-18); CHLORIDE 104 MEQ/L (98-107); GLOMERULAR FILTRATION RATE 85 ML/MIN (>89); POTASSIUM 3.1 MEQ/L (3.5-5.1); SODIUM (NA) 139 MEQ/L (136-145)
[2016-05-19 06:29] LABS: ALKALINE PHOSPHATASE 70 U/L (45-117); ALT (GPT) 21 U/L (10-53); TOTAL BILIRUBIN ADULT 0.6 MG/DL (0.2-1.0)
[2016-05-19] MEDS: LOSARTAN 25 MG TAB PO SCH (08:44)
[2016-05-19] MEDS: ENOXAPARIN SODIUM 40 MG/0.4 ML SYRINGE SQ SCH (08:44)
[2016-05-19] MEDS: METOPROLOL TARTRATE 25 MG TAB PO SCH ×2 (08:44→20:54)
[2016-05-19] MEDS: PANTOPRAZOLE SODIUM 40 MG VIAL IV SCH (08:44)
[2016-05-19] MEDS: FLUTICASONE PROPIONATE 50 MCG/ACT 16 GM NASAL SPRAY EACH NARE SCH ×2 (08:45→20:55)
[2016-05-19] MEDS: FLUTICASONE PROPIONATE 110 MCG/ACT 12 GM INHALER INH SCH ×2 (08:45→20:55)
[2016-05-19] MEDS: DOCUSATE SODIUM 100 MG CAP PO SCH ×2 (08:47→20:54)
[2016-05-19] MEDS: ARTIFICIAL TEARS OPTH SOLN 15 ML BTL EACH EYE SCH ×3 (08:47→17:48)
[2016-05-19] MEDS: LEVOTHYROXINE SODIUM 50 MCG TAB PO SCH (08:47)
[2016-05-19] MEDS: SODIUM CHLORIDE 0.9% FLUSH 10 ML FLUSH IV FLUSH SCH ×2 (08:47→20:54)
--- NOTE | 2016-05-19 09:48 | RADRPT ---
EXAM DATE/TIME: 05/19/2016 07:46 [facility] COMPARISON: BILIARY SCAN (HIDA), May 16, 2016, 11:30. CHOLECYSTOSTOMY, PERCUTANEOUS, May 15, 2016, 17:52. C T ABDOMEN & PELVIS W CONTRAST, May 15, 2016, 12:55. INDICATIONS : Right upper quadrant pain. MEDICAL HISTORY : Hypertension. Gastroesophageal reflux disease. SURGICAL HISTORY : None. ENCOUNTER: Subsequent ACUITY: 4-6 days PAIN SCORE: 3/10 LOCATION: Right upper quadrant TECHNIQUE: Multiplanar, multisequence magnetic resonance imaging of the abdomen was performed. High-resolution 3D dataset was utilized to reconstruct maximum-intensity projection (MIP) images. FINDINGS: Breathing motion artifact degrades the exam INTRAHEPATIC BILE DUCTS: Intrahepatic biliary dilatation is observed. This is most pronounced within the region of the vance h epatis. No obstructing mass or stone observed. EXTRAHEPATIC BILE DUCTS: The common bile duct measures 5 mm No stone or filling defect is identified. GALLBLADDER: The gallbladder is decompressed. A cholecystostomy tube is reportedly present but the motion artifact on the current study does not allow me to visualize this tube. LIVER: Normal size and signal intensity. No concerning liver lesion is identified on this non-contrast exam. PANCREAS: The main pancreatic duct is normal in size. There is no significant anatomical variant. Signal inte nsity is within normal limits. No mass is visualized on this non-contrast exam. OTHER: Tiny bilateral pleural effusions. These are new from the prior CT. The remaining visualized structure s demonstrate no acute abnormality on this non-contrast exam. CONCLUSION: 1. This examination is degraded by breathing motion artifact. 2. Intrahepatic ductal dilatation. The common bile duct is normal in caliber measuring 5 mm. I'm not able to appreciate any obstructing mass or stone to account for the biliary dilatation. 3. New small bilateral pleural effusions. Luis Collier Jr., MD on May 19, 2016 at 9:07 Board Certified Radiologist. This report was verified electronically.
--- NOTE | 2016-05-19 11:14 | HHI.PR ---
Subjective Remarks No new complaints. Denies any abd pain, eating her diet without any difficulty Objective Vitals Vital Signs Date Time Temp Pulse Resp B/P Pulse Ox O2 Delivery O2 Flow Rate FiO2 05/19/16 09:00 86 05/19/16 08:35 98.1 89 20 173/73 99 05/19/16 07:00 75 05/19/16 06:00 86 05/19/16 05:00 80 05/19/16 04:00 78 05/19/16 03:30 98.6 77 16 141/67 98 05/19/16 03:00 72 05/19/16 02:34 75 05/19/16 01:11 74 05/19/16 00:00 87 05/18/16 23:45 97.3 72 16 113/64 97 05/18/16 23:00 74 05/18/16 22:00 100 05/18/16 21:00 82 05/18/16 20:00 96 05/18/16 19:50 Room Air 05/18/16 19:50 98.8 87 18 130/71 99 05/18/16 19:00 82 05/18/16 18:00 86 05/18/16 17:00 90 05/18/16 16:16 99.0 86 18 129/65 97 05/18/16 16:00 88 05/18/16 15:00 96 05/18/16 14:00 74 05/18/16 13:00 114 05/18/16 12:00 92 05/18/16 11:25 98.5 91 20 136/73 97 05/18/16 11:25 97 Room Air 05/18/16 05/18/16 05/19/16 15:00 23:00 07:00 Intake Total 460 ml 220 ml Output Total 1280 ml 550 ml Balance -820 ml -330 ml Intake Oral 360 ml 120 ml IV Total 100 ml 100 ml Output Urine Total 1250 ml 550 ml Drainage Total 30 ml # Bowel Movements 3 1 Result Diagram: 05/19/16 0504 05/19/16 0504 Other Results Laboratory Tests Test 05/17/16 05/17/16 05/18/16 05/19/16 15:23 19:52 04:02 05:04 Potassium Level 3.1 MEQ/L 3.8 MEQ/L 3.8 MEQ/L 3.1 MEQ/L Magnesium Level 2.1 MG/DL 1.9 MG/DL White Blood Count 8.5 TH/MM3 7.5 TH/MM3 Red Blood Count 3.66 MIL/MM3 3.74 MIL/MM3 Hemoglobin 10.2 GM/DL 10.4 GM/DL Hematocrit 30.1 % 31.0 % Mean Corpuscular Volume 82.3 FL 82.8 FL Mean Corpuscular Hemoglobin 27.9 PG 27.9 PG Mean Corpuscular Hemoglobin 33.9 % 33.7 % Concent Red Cell Distribution Width 13.5 % 13.2 % Platelet Count 309 TH/MM3 342 TH/MM3 Mean Platelet Volume 8.9 FL 8.9 FL Neutrophils (%) (Auto) 76.9 % 69.8 % Lymphocytes (%) (Auto) 12.5 % 16.3 % Monocytes (%) (Auto) 10.2 % 12.7 % Eosinophils (%) (Auto) 0.3 % 1.0 % Basophils (%) (Auto) 0.1 % 0.2 % Neutrophils # (Auto) 6.6 TH/MM3 5.2 TH/MM3 Lymphocytes # (Auto) 1.1 TH/MM3 1.2 TH/MM3 Monocytes # (Auto) 0.9 TH/MM3 1.0 TH/MM3 Eosinophils # (Auto) 0.0 TH/MM3 0.1 TH/MM3 Basophils # (Auto) 0.0 TH/MM3 0.0 TH/MM3 CBC Comment DIFF FINAL DIFF FINAL Differential Comment Sodium Level 139 MEQ/L 139 MEQ/L Chloride Level 102 MEQ/L 104 MEQ/L Carbon Dioxide Level 27.2 MEQ/L 26.6 MEQ/L Anion Gap 10 MEQ/L 8 MEQ/L Blood Urea Nitrogen 9 MG/DL 12 MG/DL Creatinine 0.56 MG/DL 0.66 MG/DL Estimat Glomerular Filtration 102 ML/MIN 85 ML/MIN Rate Random Glucose 97 MG/DL 101 MG/DL Calcium Level 8.2 MG/DL 8.3 MG/DL Phosphorus Level 1.9 MG/DL Total Bilirubin 0.9 MG/DL 0.6 MG/DL Aspartate Amino Transf 28 U/L 18 U/L (AST/SGOT) Alanine Aminotransferase 27 U/L 21 U/L (ALT/SGPT) Alkaline Phosphatase 78 U/L 70 U/L Total Protein 6.6 GM/DL 6.8 GM/DL Albumin 2.7 GM/DL 2.8 GM/DL Imaging Last Impressions Cholangiopancreatography MRI 05/19/16 0000 Signed Impressions: Service Date/Time: Thursday, May 19, 2016 07:46 - CONCLUSION: 1. This examination is degraded by breathing motion artifact. 2. Intrahepatic ductal dilatation. The common bile duct is normal in caliber measuring 5 mm. I'm not able to appreciate any obstructing mass or stone to account for the biliary dilatation. 3. New small bilateral pleural effusions. Luis Collier Jr., MD Chest X-Ray 05/18/16 0600 Signed Impressions: Service Date/Time: Wednesday, May 18, 2016 04:09 - CONCLUSION: No acute disease. Jorge Gupta MD Hepatobiliary Scan Nuclear Medicine 05/16/16 0000 Signed Impressions: Service Date/Time: Monday, May 16, 2016 11:30 - CONCLUSION: Normal examination. Tiffany Franks MD Percutaneous Cholangiogram 05/15/16 0000 Signed Impressions: Service Date/Time: Sunday, May 15, 2016 17:52 - CONCLUSION: Uncomplicated percutaneous cholecystostomy as above. Nagi Robbins MD Abdomen/Pelvis CT 05/15/16 0000 Signed Impressions: Service Date/Time: Sunday, May 15, 2016 12:55 - CONCLUSION: 1. Markedly abnormal biliary tree with intra-and extrahepatic biliary duct dilatation, hydropic gallbladder and marked gallbladder wall thickening. 2. Etiology for biliary obstruction is uncertain. However, there is distention of the second portion of the duodenum in the region of the ampulla. 3. Bibasilar atelectatic changes/scarring, right greater than left. 4. Cortical scarring and thinning of the left kidney. This may be the result of some vascular compromise. Degenerated uterine fibroids. Luis Rowe MD Objective Remarks General: NAD Chest: CTA Cardiac: Regular Abd: +BS, soft ND/NT, cholecystostomy tube in place Ext: No edema A/P Problem List: (1) Acute cholecystitis Status: Acute Plan: - Pt presented to the ED at [facility] on 05/15/16 with abdominal pain, nausea and vomiting. She was noted to have leukocytosis with WBC count over 21,000 - CT Abd/pelvis (05/15) --> significant dilation of the bile ducts with large dilated gallbladder. - In the ED she developed rapid atrial fib with ventricular response of 150 and was started on Cardizem bolus and drip. She developed hypotension and received IV fluid and was admitted to [facility] - Pt was given Unasyn in the ED and started on Zosyn at admission - Surgery and GI were consulted. - Pt had a 7 Nepali cholecystostomy tube placed by IR on 05/16. - HIDA Scan (05/17) with no obstruction. - General surgery is not planning for any surgical intervention at this time. She will need outpt followup with General Surgery - MRCP (05/19) --> This examination is degraded by breathing motion artifact. Intrahepatic ductal dilatation. The common bile duct is normal in caliber measuring 5 mm. No appreciable obstructing mass or stone to account for the biliary dilatation. New small bilateral pleural effusions. - LFTs have normalized - Pt does not want any invasive procedures per the GI notes. - Diet as tolerated - DVT prophylaxis with SCDs (2) Rapid atrial fibrillation Status: Acute Plan: - Pt was initially treated with Cardizem drip - She was changed to amiodarone drip after receiving 150 mg IV bolus. This was discontinued on 05/17 in [facility]. - Pts HR has been stable. - Review of telemetry noted some episodes NSVT on 05/18, currently in NSR - Cont. to monitor on telemetry. - Initially her Losartan 25 mg twice a day and Norvasc 5 mg twice a day were held due to low blood pressure - Her home meds were resume on 05/17 - Norvasc was stopped on 05/18 - Metoprolol 25mg po BID started on 05/18 - Monitor Vitals closely - 2-D echocardiogram noted - EF 60%. No regional wall motion abnormality. Moderate left ear, mild MR, moderate TR, CAYET[place]O 56 mmHg. (3) Hypotension Status: Acute Plan: - Resolved. (4) Asthma Status: Chronic Plan: - Cont. Flovent 2 puffs BID and as needed albuterol nebs every 4 hours. - IS - CXR (05/18) with no acute disease (5) Hypothyroidism Status: Chronic Plan: - Home meds continued. Assessment and Plan Patient examined. Assessment and plan formulated with Leila Norman PA-C. I agree with the above. Leila Norman May 19, 2016 11:14 Carmine Bradshaw DO May 21, 2016 23:33
[2016-05-19] MEDS: ACETAMINOPHEN/HYDROcodone 325 MG/5 MG TAB PO PRN (12:47)
[2016-05-19] MEDS: POTASSIUM CHLORIDE 10 MEQ CONTROLLED RELEASE TAB PO SCH ×2 (12:59→17:47)
--- NOTE | 2016-05-19 21:35 | HHI.GIFU ---
Subjective Remarks Comfortable in chair denies any abdominal pain diarrhea has improved Objective Vitals I&O Vital Signs Date Time Temp Pulse Resp B/P Pulse Ox O2 Delivery O2 Flow Rate FiO2 05/19/16 18:00 81 05/19/16 17:00 84 05/19/16 16:00 84 05/19/16 15:46 97.1 84 18 126/63 96 05/19/16 15:00 84 05/19/16 14:00 76 05/19/16 13:00 76 05/19/16 12:00 77 05/19/16 11:30 98.4 80 18 153/78 99 05/19/16 11:00 80 05/19/16 10:00 90 05/19/16 09:00 86 05/19/16 08:35 98.1 89 20 173/73 99 05/19/16 07:00 75 05/19/16 06:00 86 05/19/16 05:00 80 05/19/16 04:00 78 05/19/16 03:30 98.6 77 16 141/67 98 05/19/16 03:00 72 05/19/16 02:34 75 05/19/16 01:11 74 05/19/16 00:00 87 05/18/16 23:45 97.3 72 16 113/64 97 05/18/16 23:00 74 05/18/16 22:00 100 I/O 05/18/16 05/18/16 05/18/16 05/19/16 05/19/16 05/19/16 07:00 15:00 23:00 07:00 15:00 23:00 Intake Total 100 ml 460 ml 220 ml 650 ml Output Total 410 ml 1280 ml 550 ml 672 ml Balance -310 ml -820 ml -330 ml -22 ml Intake Oral 50 ml 360 ml 120 ml 600 ml IV Total 50 ml 100 ml 100 ml 50 ml Output Urine Total 400 ml 1250 ml 550 ml 662 ml Drainage Total 10 ml 30 ml 10 ml # Bowel Movements 1 3 1 1 Laboratory Laboratory Tests Test 05/19/16 05:04 White Blood Count 7.5 Red Blood Count 3.74 Hemoglobin 10.4 Hematocrit 31.0 Mean Corpuscular Volume 82.8 Mean Corpuscular Hemoglobin 27.9 Mean Corpuscular Hemoglobin 33.7 Concent Red Cell Distribution Width 13.2 Platelet Count 342 Mean Platelet Volume 8.9 Neutrophils (%) (Auto) 69.8 Lymphocytes (%) (Auto) 16.3 Monocytes (%) (Auto) 12.7 Eosinophils (%) (Auto) 1.0 Basophils (%) (Auto) 0.2 Neutrophils # (Auto) 5.2 Lymphocytes # (Auto) 1.2 Monocytes # (Auto) 1.0 Eosinophils # (Auto) 0.1 Basophils # (Auto) 0.0 CBC Comment DIFF FINAL Differential Comment Sodium Level 139 Potassium Level 3.1 Chloride Level 104 Carbon Dioxide Level 26.6 Anion Gap 8 Blood Urea Nitrogen 12 Creatinine 0.66 Estimat Glomerular Filtration 85 Rate Random Glucose 101 Calcium Level 8.3 Total Bilirubin 0.6 Aspartate Amino Transf 18 (AST/SGOT) Alanine Aminotransferase 21 (ALT/SGPT) Alkaline Phosphatase 70 Total Protein 6.8 Albumin 2.8 Imaging Last Impressions Cholangiopancreatography MRI 05/19/16 0000 Signed Impressions: Service Date/Time: Thursday, May 19, 2016 07:46 - CONCLUSION: 1. This examination is degraded by breathing motion artifact. 2. Intrahepatic ductal dilatation. The common bile duct is normal in caliber measuring 5 mm. I'm not able to appreciate any obstructing mass or stone to account for the biliary dilatation. 3. New small bilateral pleural effusions. Luis Collier Jr., MD Chest X-Ray 05/18/16 0600 Signed Impressions: Service Date/Time: Wednesday, May 18, 2016 04:09 - CONCLUSION: No acute disease. Jorge Gupta MD Hepatobiliary Scan Nuclear Medicine 05/16/16 0000 Signed Impressions: Service Date/Time: Monday, May 16, 2016 11:30 - CONCLUSION: Normal examination. Tiffany Franks MD Percutaneous Cholangiogram 05/15/16 0000 Signed Impressions: Service Date/Time: Sunday, May 15, 2016 17:52 - CONCLUSION: Uncomplicated percutaneous cholecystostomy as above. Nagi Robbins MD Abdomen/Pelvis CT 05/15/16 0000 Signed Impressions: Service Date/Time: Sunday, May 15, 2016 12:55 - CONCLUSION: 1. Markedly abnormal biliary tree with intra-and extrahepatic biliary duct dilatation, hydropic gallbladder and marked gallbladder wall thickening. 2. Etiology for biliary obstruction is uncertain. However, there is distention of the second portion of the duodenum in the region of the ampulla. 3. Bibasilar atelectatic changes/scarring, right greater than left. 4. Cortical scarring and thinning of the left kidney. This may be the result of some vascular compromise. Degenerated uterine fibroids. Luis Rowe MD Physical Exam HEENT: normocephalic NECK: Neck is supple CHEST: Chest is clear to auscultation and percussion. CARDIAC: Regular rate and rhythm with no murmur gallop or rubs. ABDOMEN: Soft, nondistended, nontender; no hepatosplenomegaly; bowel sounds are present in all four quadrants. Cholecystostomy tube in place with little drainage EXTREMITIES: No clubbing, cyanosis, or edema. SKIN: Normal; no rash; no jaundice. SOAP DRIER TENDER: No focal deficits; alert and oriented times three. Assessment and Plan Plan - Dilated CBD of unknown etiology- She endorses bad case of diarrhea X 2 days, states this cleared up then the pain started, she couldn't move, every time she moved, the pain was intolerable, constant 10 on the scale from 0-10, associated with nausea, but no vomiting, patient hasn't been eating very well for the past 2 days. Patient lives alone, she wears the Recommendo for help device, she asked for help and was brought to [facility] for further evaluation. Workup in the emergency department included CT a abdomen which showed Markedly abnormal biliary tree with intra-and extrahepatic biliary duct dilatation, hydropic gallbladder and marked gallbladder wall thickening. Etiology for biliary obstruction is uncertain. However, there is distention of the second portion of the duodenum in the region of the ampulla. LFTs normal. HIDA, MRCP ordered but pending. - Acute cholecystitis- She was evaluated by GS and under went percutaneous cholecystostomy with IR. - Leukocytosis- improving - Zosyn - A-fib with RVR- per CCM - Acute Hypotension- secondary to above - Chronic anemia- no bleeding reported, base line around 9, today is 7.9, could be dilutional effect Plan: -Further plans as per the surgical service especially regarding the acute cholecystitis and the cholecystostomy tube -Continue with current supportive care -Latest cholangiogram is basically unremarkable there continues to be some intrahepatic ductal dilatation but I think this is of unclear significance or residual dilation -No further recommendations from a GI standpoint we will sign off Onofre,Munir El-sayed MD May 19, 2016 21:35
[2016-05-19] MEDS ORDERED: POTASSIUM CHLORIDE 20 MEQ PWD PACKET PO ONE (23:30)
[2016-05-20] VITALS (21 sets, daily range): BP systolic 122–156; BP diastolic 64–80; PULSE 69–96; RESP 16; TEMP 98.1–98.7; O2SAT 99
[2016-05-20] MEDS: CHLORHEXIDINE GLUCONATE 2 % 1 PACK (2 CLOTHS) TOP SCH (04:00)
[2016-05-20] MEDS: LEVOTHYROXINE SODIUM 50 MCG TAB PO SCH (05:15)
[2016-05-20 07:12] LABS: BICARBONATE 24.2 MEQ/L (21.0-32.0); POTASSIUM 4.1 MEQ/L (3.5-5.1)
[2016-05-20] MEDS: ENOXAPARIN SODIUM 40 MG/0.4 ML SYRINGE SQ SCH (08:41)
[2016-05-20] MEDS: ACETAMINOPHEN/HYDROcodone 325 MG/5 MG TAB PO PRN ×2 (08:42→14:29)
[2016-05-20] MEDS: METOPROLOL TARTRATE 25 MG TAB PO SCH (08:42)
[2016-05-20] MEDS: LOSARTAN 25 MG TAB PO SCH (08:42)
[2016-05-20] MEDS: DOCUSATE SODIUM 100 MG CAP PO SCH (08:42)
[2016-05-20] MEDS: SODIUM CHLORIDE 0.9% FLUSH 10 ML FLUSH IV FLUSH SCH (08:43)
[2016-05-20] MEDS: ARTIFICIAL TEARS OPTH SOLN 15 ML BTL EACH EYE SCH ×3 (08:57→18:00)
[2016-05-20] MEDS: FLUTICASONE PROPIONATE 50 MCG/ACT 16 GM NASAL SPRAY EACH NARE SCH (08:57)
[2016-05-20] MEDS: FLUTICASONE PROPIONATE 110 MCG/ACT 12 GM INHALER INH SCH (08:57)
[2016-05-20] MEDS ORDERED: LEVOFLOXACIN 500 MG TAB PO SCH (09:00)
[2016-05-20] MEDS ORDERED: PANTOPRAZOLE SOD 20 MG DELAYED RELEASE TAB PO SCH (09:00)
[2016-05-20] MEDS ORDERED: LEVA500T PO (13:04)
[2016-05-20] MEDS ORDERED: DOCU1CAP39 PO (13:04)
[2016-05-20] MEDS ORDERED: METO25TA3 PO (13:04)
--- NOTE | 2016-05-20 13:34 | HHI.DS ---
Discharge Summary Admission Date May 15, 2016 at 13:41 Discharge Date: May 20, 2016 Admitting Diagnosis acute cholecystitis (1) Acute cholecystitis Diagnosis: Principal (2) Rapid atrial fibrillation Diagnosis: Secondary (3) Hypotension Diagnosis: Secondary (4) Asthma Diagnosis: Secondary (5) Hypothyroidism Diagnosis: Secondary Consultants Dr. Tyson Connelly - General Surgery Dr. Lalita Kendrick - GI Brief History 86 y/o white female presents to er with abdominal pain with nausea and vomit work in er included CT abd which showed significant dilation bile ducts with large dilated gallbladder ,patient was to be admitted to medicine and in er developed rapid atrial fib with ventricular response of 150 and started on cardiazem bolus and drip and also developed hypotension and is receiving bolus IV fluid and will be admitted to intensive care. I will consult enameler surgery has already been aware and will consult interventional radiology who also are aware of patient. CBC/BMP: 05/19/16 0504 05/20/16 0550 Significant Findings Laboratory Tests Test 05/17/16 05/18/16 05/19/16 05/20/16 15:23 04:02 05:04 05:50 Potassium Level 3.1 MEQ/L 3.1 MEQ/L (3.5-5.1) (3.5-5.1) Red Blood Count 3.66 MIL/MM3 3.74 MIL/MM3 (4.00-5.30) (4.00-5.30) Hemoglobin 10.2 GM/DL 10.4 GM/DL (11.6-15.3) (11.6-15.3) Hematocrit 30.1 % 31.0 % (35.0-46.0) (35.0-46.0) Neutrophils (%) (Auto) 76.9 % (16.0-70.0) Monocytes (%) (Auto) 10.2 % 12.7 % (0.0-8.0) (0.0-8.0) Calcium Level 8.2 MG/DL 8.3 MG/DL (8.5-10.1) (8.5-10.1) Phosphorus Level 1.9 MG/DL (2.5-4.9) Albumin 2.7 GM/DL 2.8 GM/DL (3.4-5.0) (3.4-5.0) Monocytes # (Auto) 1.0 TH/MM3 (0-0.9) Estimat Glomerular Filtration 85 ML/MIN (>89) 86 ML/MIN (>89) Rate Imaging Last Impressions Cholangiopancreatography MRI 05/19/16 0000 Signed Impressions: Service Date/Time: Thursday, May 19, 2016 07:46 - CONCLUSION: 1. This examination is degraded by breathing motion artifact. 2. Intrahepatic ductal dilatation. The common bile duct is normal in caliber measuring 5 mm. I'm not able to appreciate any obstructing mass or stone to account for the biliary dilatation. 3. New small bilateral pleural effusions. Luis Collier Jr., MD Chest X-Ray 05/18/16 0600 Signed Impressions: Service Date/Time: Wednesday, May 18, 2016 04:09 - CONCLUSION: No acute disease. Jorge Gupta MD Hepatobiliary Scan Nuclear Medicine 05/16/16 0000 Signed Impressions: Service Date/Time: Monday, May 16, 2016 11:30 - CONCLUSION: Normal examination. Tiffany Franks MD Percutaneous Cholangiogram 05/15/16 0000 Signed Impressions: Service Date/Time: Sunday, May 15, 2016 17:52 - CONCLUSION: Uncomplicated percutaneous cholecystostomy as above. Nagi Robbins MD Abdomen/Pelvis CT 05/15/16 0000 Signed Impressions: Service Date/Time: Sunday, May 15, 2016 12:55 - CONCLUSION: 1. Markedly abnormal biliary tree with intra-and extrahepatic biliary duct dilatation, hydropic gallbladder and marked gallbladder wall thickening. 2. Etiology for biliary obstruction is uncertain. However, there is distention of the second portion of the duodenum in the region of the ampulla. 3. Bibasilar atelectatic changes/scarring, right greater than left. 4. Cortical scarring and thinning of the left kidney. This may be the result of some vascular compromise. Degenerated uterine fibroids. Luis Rowe MD PE at Discharge General: NAD Chest: CTA Cardiac: Regular Abd: +BS, soft ND/NT, cholecystostomy tube in place Ext: No edema Hospital Course Pt presented to the ED at [facility] on 05/15/16 with abdominal pain, nausea and vomiting. She was noted to have leukocytosis with WBC count over 21,000. CT Abd /pelvis (05/15) --> significant dilation of the bile ducts with large dilated gallbladder. In the ED she developed rapid atrial fib with ventricular response of 150 and was started on Cardizem bolus and drip. She developed hypotension and received IV fluid and was admitted to [facility] [place]. Pt was initially treated with Cardizem drip but was changed to amiodarone drip after receiving 150 mg IV bolus. This was discontinued on 05/17 in [facility] [place]. Initially her Losartan 25 mg twice a day and Norvasc 5 mg twice a day were held due to low blood pressure while in ICU. BP improved and her home meds were resume on 05/17. Pts HR has remained stable for the most part. She did have some episodes of NSVT on 05/18, currently in NSR so her Norvasc was stopped on 05/18 and she was started on Metoprolol 25mg po BID. 2-D echocardiogram noted EF 60%, no regional wall motion abnormality, mild MR, moderate TR, CAYETANO 56 mmHg. Pt was given Unasyn in the ED and started on Zosyn at admission. Surgery and GI were consulted. Pt had a 7 Nigerien cholecystostomy tube placed by IR on 05/16. HIDA Scan (05/17) with no obstruction. General surgery is not planning for any surgical intervention at this time. MRCP (05/19) --> This examination is degraded by breathing motion artifact. Intrahepatic ductal dilatation. The common bile duct is normal in caliber measuring 5 mm. No appreciable obstructing mass or stone to account for the biliary dilatation. Her LFTs have normalized. Pt did not want any invasive procedures performed. GI felt that the continued intrahepatic ductal dilatation was of unclear significance or residual dilation. They recommended any further plans as per the surgical service especially regarding the acute cholecystitis and the cholecystostomy tube. The case was discussed between Dr. Bradshaw and Dr. Collier from Interventional Radiology prior to discharge and the pt was recommended to have her cholecystostomy tube left in place for 3 weeks and then follow back up with IR for repeat cholangiogram to decide upon removal of the tube. Her Zosyn was changed to PO Levaquin on 05/19 and she will complete another 5 days of this. She will need followup with Dr. Connelly 1 week after her followup with IR. She will need to followup with her PCP, Dr. Lam Yang, 1 week after discharge from SNF. Pt Condition on Discharge: Stable Discharge Disposition: Discharge to SNF Discharge Instructions DIET: Follow Instructions for: Heart Healthy Diet Activities you can perform: Regular-No Restrictions Follow up Referrals: PCP Follow-up - [address] Lam Yang Surgical - 1 Month with Tyson Vazquez MD New Medications: Docusate Sodium (Dok) 100 Mg Cap 100 MG PO BID constipation precaution #62 CAP Levofloxacin (Levaquin) 500 Mg Tab 500 MG PO DAILY cholecystitis #5 TAB Metoprolol Tartrate (Metoprolol Tartrate) 25 Mg Tab 25 MG PO Q12HR a. fib #62 TAB Continued Medications: Calcium Carbonate-Cholecalciferol (Calcium 500 +D) 500-400 Mg-Unit Tab 1 TAB PO DAILY Calcium Supplement Ref 0 TAB Fexofenadine (Fexofenadine) 180 Mg Tab 180 MG PO DAILY PRN ALLERGIES #30 Ref 0 TAB Fluticasone 12 GM Inh (Flovent Hfa 12 GM Inh) 110 Mcg/Act Inh 2 PUFF INH BID Asthma Management #1 Ref 0 INHALER Fluticasone Nasal Lisco (Flonase Nasal Lisco) 50 Mcg/Act Lisco 50 MCG EACH NARE BID Allergies #1 Ref 0 BOTTLE Levothyroxine (Levothyroxine) 50 Mcg Tab 50 MCG PO DAILY Thyroid #30 Ref 0 TAB Losartan (Losartan) 25 Mg Tab 25 MG PO BID Blood Pressure Management #30 Ref 0 TAB Multiple Vitamins W/ Minerals (Multivitamin Adults) 1 Tab 1 TAB PO DAILY Nutritional Supplement Ref 0 TAB Discontinued Medications: Acetaminophen-Codeine (Tylenol-Codeine #3) 300-30 mg Tab 1 TAB PO Q4H PRN PAIN Ref 0 TAB Amlodipine (Amlodipine) 5 Mg Tab 5 MG PO BID Blood Pressure Management #30 Ref 0 TAB Additional Information Patient examined. Assessment and plan formulated with Leila Norman PA-C. I agree with the above. Leila Norman May 20, 2016 13:33 Carmine Bradshaw DO May 21, 2016 23:33
[2016-05-20] MEDS ORDERED: HYDR-3516 PO (13:57)
== END 2016-05-20 18:24 | DRG 445 ==
LOC: PHED 10:47 → PHEDA 13:41 → N03A 18:45 → HCIN 05-17 23:53
PROVIDERS: ADMIT Internal Medicine Critical Care Medicine; ATTEND Internal Medicine Critical Care Medicine
PROC: 0F9430Z Drainage of Gallbladder with Drainage Device, Percutaneous Approach (ICD-10-PCS; principal; 2016-05-15)
PROC: BF121ZZ Fluoroscopy of Gallbladder using Low Osmolar Contrast (ICD-10-PCS; 2016-05-15)
DX: K81.0 Acute cholecystitis (principal); K57.92 Diverticulitis of intestine, part unspecified, without perforation or abscess without bleeding; I95.9 Hypotension, unspecified; D64.9 Anemia, unspecified; I48.91 Unspecified atrial fibrillation; I49.9 Cardiac arrhythmia, unspecified; R11.2 Nausea with vomiting, unspecified; E03.9 Hypothyroidism, unspecified; I12.9 Hypertensive chronic kidney disease with stage 1 through stage 4 chronic kidney disease, or unspecified chronic kidney disease; N18.9 Chronic kidney disease, unspecified; K21.9 Gastro-esophageal reflux disease without esophagitis; M19.90 Unspecified osteoarthritis, unspecified site; E78.00 Pure hypercholesterolemia, unspecified; R25.1 Tremor, unspecified
CPT/HCPCS: 36430; 47490; 71010; 74177; 74181; 76377; 78226; 80048; 80053; 80076; 81001; 82550; 83605; 83690; 83735; 84100; 84132; 84443; 84484; 85007; 85025; 85027; 85610; 85730; 86850; 86900; 86901; 86920; 87641; 93005; 93306; 94150; 96361; 96374; 99152; 99153; A9537; C1729; C9113; J0282; J0295; J0610; J1650; J1940; J1956; J2250; J2405; J2543; J3010; J3475; J3480; J7030; J7040; J7050; J7060; P9016; P9047; P9612; Q9967

== ENCOUNTER 2016-06-24 07:31 | Day surgery (SDC) | payer MEDICARE ==
[2016-06-24 07:30] VITALS: BP 160/106; PULSE 72; RESP 18; TEMP 97.9; O2SAT 98
[~2016-06-24 07:31] MED LIST changes: -AMLO10 PO; +CALC1TAB12 PO; +DOCU1CAP39 PO; -FEXO180 PO; +FEXO180T PO; -FLON0.053; +FLUT1SPR5 EACH NARE; +FLUTI110I INH; -FLUTI44I INH; +HYDR-3516 PO; -HYDR-3580 OR; +LEVA500T PO; +LEVO50TA4 PO; -LEVO50TA51 PO; +LOSA25TA PO; -LOSA25TA31 PO; +METO25TA3 PO; +MULT1TAB84 PO; -TRAM50 PO
[2016-06-24 08:18] VITALS: BP 160/106; PULSE 72; RESP 20; TEMP 97.9; O2SAT 98
[2016-06-24] MEDS ORDERED: LEVOFLOXACIN 500 MG PREMIX 100 ML - biliary drainage catheter/stent insertion IV SCH (08:45)
[2016-06-24] MEDS ORDERED: SODIUM CHLORIDE 0.9% 1000 ML IV SCH (09:00)
--- NOTE | 2016-06-24 10:52 | PD.RAD ---
Post Procedure Progress Note Pre Procedure Diagnosis: (1) Acute cholecystitis Post Procedure Diagnosis: (1) Acute cholecystitis Procedure Date: June 24, 2016 Supervising Radiologist: Chris Urban Estimated blood loss: none Plan of Activity Patient to Unit: ROPU Patient Condition: Fair Additional Comments: Gallbladder drain evaluated. Tube is in good position. The cystic duct and CBD are patent. Tube removed See PACS Report for procedural detail/treatment Chris Urban MD June 24, 2016 10:52
[2016-06-24 10:55] VITALS: BP 175/79; PULSE 73; RESP 18; TEMP 97.8; O2SAT 99
[2016-06-24] MEDS ORDERED: IOHEXOL 350 MG/ML 50 ML BTL (for RAD DIAG) ONE (10:58)
[2016-06-24 11:10] VITALS: BP 175/79; PULSE 72; RESP 18; O2SAT 99
--- NOTE | 2016-06-24 13:59 | RADRPT ---
EXAM DATE/TIME: 06/24/2016 11:14 [place] COMPARISON: DRAINAGE CATH REMOVAL, June 24, 2016, 0:00. INDICATIONS : Patient with history of acute cholecystitis in need of cholangiogram. MEDICAL HISTORY : Neurological tremors, A-Fib, HTN, Asthma, GERD, Renal disease, Anemia, DJD, HLD, Diverticular disease , Hypothyroid, Aortic valve stenosis, COPD, CKD, CHF SURGICAL HISTORY : D&C, Cholecystostomy ENCOUNTER: Subsequent ACUITY: 2 months PAIN SCORE: 0/10 FLUORO TIME: 1 minutes IMAGE SERIES: 3 CONTRAST: 5 cc Omnipaque (iohexol) 350 PROCEDURE : 1. cholecystostomy tube evaluation. The risks, benefits and alternatives to the procedure were explained and verbal and written consent w as obtained. The site was prepped in sterile fashion. Full sterile technique was used, including ca p, mask, sterile gloves and gown and a large sterile sheet. Hand hygiene and 2% chlorhexidine and/or betadine/alcohol prep was utilized per protocol for cutaneous antisepsis. The existing cholecystostomy tube was accessed using sterile technique. A small injection of contrast demonstrates filling of the gallbladder with multiple stones seen within the gallbladder. The cystic duct is patent. Contrast passed through the cystic duct and filled the common bile duct and intra-he patic biliary system. No findings to suggest common bile duct obstruction were evident. The cholecystostomy tube was removed without difficulty. CONCLUSION: 1. The cystic duct and common bile duct are patent. The cholecystostomy tube was removed. Chris Urban MD on June 24, 2016 at 13:56 Board Certified Radiologist. This report was verified electronically.
== END 2016-06-24 12:45 | disposition home or self-care (01) ==
LOC: HROP 07:31 → HRIP 07:32 → HROP 12:45
PROVIDERS: ATTEND Surgery
DX: K81.0 Acute cholecystitis (principal)
CPT/HCPCS: 47531; Q9967